=== PATIENT | female | born 2005 | race Caucasian/White ===

== ENCOUNTER 2023-09-07 03:54 | Inpatient (IN) | payer MEDICAID, SELFPAY ==
[2023-09-07] VITALS (55 sets, daily range): BP systolic 99–154; BP diastolic 52–80; PULSE 79–133; RESP 16; TEMP 36.4–37.3; O2SAT 94–100; BMI 24.6
--- OUTSIDE RECORDS SUMMARY | 2023-09-07 03:14 | XMS RPT_ITS | CCD ---
Author Name Unknown Address [address] [place] [address] Organization [facility] Care Team Providers Care Printing Plate Clerk Name Role Phone LUCRECIA ROWAN Unavailable Unavailable REFERRED, SELF Unavailable Unavailable NO PRIMARY CARE, Unavailable Unavailable Unavailable Primary Care Provider Unavailabl e [facility] Primary Care Provider Unav ailable MILLIE RHOADES Attending Unavailable [facility] Unavailable [facility] Unavailable DUNCAN YOO Attending Unavailable MARIZOL AZEVEDO Referring Unavailable [facility] Unavailable MILLIE RHOADES Attending Unavailable [facility] Primary [facility] Unavailable MILLIE RHOADES Referring Unavailable [facility] Primary [facility] Unavailable GARCIALATONIA Ochoa Attending Unavailable [facility] Primary [facility] Unavailable GARCIA, LATOINA Referring Unavailable MARIZOL AZEVEDO Attending Unavailable [facility] Primary Care Unavailable MARIZOL AZEVEDO Attending Unavailable [facility] Primary [facility] Unavailable MARIZOL AZEVEDO Attending Unavailable [facility] Primary [facility] Unavailable MARIZOL AZEVEDO Attending Unavailable [facility] Primary Care Unavailable Unavailable Primary Care Provider UnavailKVNG Acevedo Attending Unavailable CHRISTI MALAGON Attending Unavail able ERICH PAYNE Attending Unavailable ERICH PAYNE Attending Unavailable RUDDY WHITEHEAD Attending Unavailable Medications Current Medications Medication Drug Class(es) Dates Sig (Normalized) Sig (Original) albuterol 0.83 mg/ml inhalant solution (3 sources) beta2-Adrenergic Agonist Start: 04-05-2019 albuterol (PROVENTIL) nebulizer solution 2.5 mg Completed/Discontinued Medications Medication Drug Class(es) Dates Sig (Normalized) Sig (Original) 10 ml lidocaine hydrochloride 10 mg/ml injection (1 source) Antiarrhythmic, Amide Local Anesthetic Start: 03-03-2019 End: 03-03-2019 lidocaine PF 1 % injection 5 mL PNV no.95/ferrous fum/folic ac ( ORAL) (7 sources) PNV no.95/ferrou s fum/folic ac ( ORAL) Take by mouth once daily. 0 Active Problems Active Problems Problem Classification Problem Date Documented Date Episodic/Chronic Chronic obstructive pulmonary disease and bronchiectasis (1 source) Bronchitis; Translations: [Bronchitis] Episodic Menstrual disorders (3 sources) Amenorrhea; Translations: [Amenorrhea, unspecified] Onset: 02-04-2023 02-04-2023 Chronic Nonmalignant breast conditions (1 source) Abscess of breast; Translations: [Abscess of breast] Episodic Other complications of (2 sources) Other specified related conditions, unspecified trimester; Translations: [Other specified related conditions, unspecified trimester] Onset: 06-11-2023 Episodic Other lower respiratory disease (1 source) Cough; Translations: [Cough] Episodic Other and delivery including normal (20 sources) Patient encounter status; Translations: [Encounter for supervision of normal , unspecified, unspecified trimester] Onset: 02-28-2023 02-04-2023 Episodic Other screening for suspected conditions (not mental disorders or infectious disease) (6 sources) Encounter for screening for malformations; Translations: [Encounter for nonprocreative screening for genetic disease carrier status] Onset: 02-28-2023 Episodic Residual codes; unclassified (1 source) Gestation period, 12 weeks; Translations: [12 weeks gestation of ] 02-28-2023 Episodic Residual codes; unclassified (2 sources) Gestation period, 16 weeks; Translations: [16 weeks gestation of ] Onset: 03-28-2023 03-28-2023 Episodic Residual codes; unclassified (2 sources) Unspecified blood type, Rh negative; Translations: [Unspecified blood type, rh negative] Onset: 06-11-2023 Episodic Residual codes; unclassified (1 source) 16 weeks gestation of ; Translations: [16 weeks gestation of ] Onset: 03-28-2023 Episodic Residual codes; unclassified (1 source) Gestation period, 35 weeks; Translations: [35 weeks gestation of ] 08-08-2023 Episodic Residual codes; unclassified (1 source) Gestation period, 37 weeks; Translations: [37 weeks gestation of ] 08-16-2023 Episodic Residual codes; unclassified (1 source) Gestation period, 38 weeks; Translations: [38 weeks gestation of ] 08-23-2023 Episodic Residual codes; unclassified (1 source) Gestation period, 39 weeks; Translations: [39 weeks gestation of ] 08-30-2023 Episodic Residual codes; unclassified (1 source) Gestation period, 40 weeks; Translations: [40 weeks gestation of ] 09-06-2023 Episodic Unclassified (2 sources) Routine Visit; Translations: [Routine Visit] Onset: 04-26-2023 Past or Other Problems Problem Classification Problem Date Documented Da te Episodic/Chronic Other complications of (18 sources) RhD negative; Translations: [Other specified related conditions, unspecified trimester] Onset: 02-07-2023 02-07-2023 Episodic Results Test Name Value Interpretation Reference Range Facil ity in contact with raw meat, poultry, seafood, eggs or unwashed fresh produce. Clean up spills in your refrigerator right away. Look at expiration dates on containers. Once a week throw away food that should no longer be eaten. Keep things Keep raw meat, poultry and seafood separate from other items in your grocery cart and refrigerator. Put uncooked meat, poultry and fish in sealed containers or plastic bags when storing them in the refrigerator. Use one cutting board for raw meats and a different one for fruits and vegetables. Place cooked meat, poultry and seafood on a clean plate. Do not reuse a plate that held the raw food. Keep things chilled Keep your refrigerator at 40 F or below and your freezer at zero F or below. Refrigerate food quickly. Cold temperatures keep most harmful bacteria from multiplying. Refrigerate perishable foods within two hours of purchase. (Refrigerate within one hour if the temperature is more than 90 F.) Refrigerate or freeze prepared foods and leftovers within two hours (within one hour if the temperature is more than 90 F). Use shallow containers for quicker cooling. Don't overpack the refrigerator; leave room for the cold air to circulate. Never thaw foods on the counter. Thaw foods in the refrigerator, in cold water, or in a microwave. Cook things well Use a clean, quick-read food thermometer to determine the temperature of foods. Cook foods until they have reached the proper temperature: roast beef, steaks, pork chops or roast to at least 145 F ground beef to at least 160 F ground turkey, chicken breasts or whole poultry to at least 165 F fish until it's opaque and flakes easily with a fork (145 F) eggs until the yolks and whites are firm egg dishes to 160 F Reheat leftovers to 165 F. Other tips to prevent food-related illness Listeria is a kind of bacteria that can contaminate foods and cause an infection called listeriosis. This is a serious illness that can cause premature labor or to a developing or baby. To reduce your risk of listeriosis: Make sure all milk and milk products are pasteurized. Do not eat unpasteurized soft cheeses such as feta, Brie, Camembert, blue-veined cheeses and Bermudian-style cheeses. Limit deli foods like prepared salads or cheeses. Reheat hot dogs, lunch meats and deli meats until they are steaming hot. Do not eat refrigerated p t or meat spreads. (Canned or shelf-stable spreads are fine.) Only eat refrigerated smoked seafood as an ingredient in a cooked dish, such as a casserole. Reheat pre-cooked, take-home meals to 165 F. Choosing fish wisely Fish is a good source of protein, contains fatty acids, and is low in saturated fat. However, any fish (store-bought or fresh-caught) could contain contaminants such as mercury or PCBs that can harm a developing baby. It's best to vary the kind of fish you eat and limit the amount of fish you eat to one to two meals a week. The amount of fish in a meal depends on your body weight. If you weigh 150 pounds, you could safely eat one-half pound (8 ounces) of fish (precooked weight). To adjust the amount of fish, subtract or add one ounce of fish for every 20 pounds of body weight: If you weigh 130 pounds, eat 7 ounces of fish. If you weigh 150 pounds, eat 8 ounces of fish. If you weigh 170 pounds, eat 9 ounces of fish. Tips to help you choose fish Avoid camilo mackerel, swordfish, tilefish, marlin, orange roughy, and shark. These are large, salt-water fish most likely to have high levels of mercury. Avoid eating these locally caught fish: walleye larger than 20 inches, northern pike larger than 30 inches, and all muskellunge (muskies). Limit eating canned albacore tuna to one 6-ounce meal a month. Light tuna is a smaller fish and less likely to have high levels of mercury. Eat up to two meals a week of farm-raised or wild salmon from the [place] or [place], not from the [place]. Avoid raw fish, sushi and sashimi because it could contain harmful bacteria. Caffeine We don t know a lot about the effects of caffeine during on you and your baby. So it s best to limit the amount you get each day. If you re , limit caffeine to 200 milligrams each day. This is about the amount in 1 8-ounce cups of coffee or one 12-ounce cup of coffee. If you re , limit caffeine to no more than two cups of coffee a day. From September ====== Obstetrical Care Calendar This outline gives a general idea of what to expect at your future OB visits with [facility] 6 -13 Weeks - Dating and Viability Ultrasound/ Initial OB intake and physical with a Certified Nurse Website Developer or Women s Health Nurse Practitioner. Obtain complete medical, genetic and obstetrical history blood work ordered education Discuss testing options: 1st trimester screening (provides a more accurate assessment of a woman s risk for carrying a baby with Down Syndrome, Trisomy 13 and Trisomy 18. Carrier Screening for Cystic Fibrosis, Spinal Muscular Atrophy or Fragile X. AFP for Neural Tube Defect. Other tests if appropriate due to risk factors. Discuss Physician and Nurse Website Developer options Discuss [facility] as site for delivery 10 - 14 Weeks - Visit with OB Provider Review Results of Labs Discuss 1st Trimester Screening results if you choose this testing Discuss indications or need for MFM referral if High Risk At Each visit - Check Blood pressure, Check urine, check weight and heart tones as indicated 12 - 16 weeks - Visit with OB Provider Discuss 2nd trimester screening (QUAD screen or AFP) if desired Check blood pressure, urine, weight and heart tones Review OB provider options Schedule anatomy ultrasound to be done around 18 weeks 18 - 20 weeks - Anatomy US and Visit with Provider Check weight, blood pressure and urine Listen to heart beat and check uterine size Review results of anatomy ultrasound 22 - 24 weeks - Visit with OB Provider Check weight, blood pressure and urine Listen to heart beat and check uterine size Discuss 1 hour glucose test for gestational diabetes Order blood work for anemia and glucose test to be done around 28 weeks Order Antibody screen and rhogam IF Rh negative blood type 26 - 28 weeks - Visit with OB Provider Check weight, blood pressure and urine Listen to heart beat and check uterine size Discuss plans, choosing director of resource development, taking childbirth classes Discuss TDaP vaccine to protect the baby against whooping cough, given at 27-36 weeks of 30 - 36 weeks - Visits with OB provider every 2 weeks Review results of glucose test and anemia test Check weight, blood pressure and urine Listen to heart beat and check uterine size High risk testing, if needed, will begin weekly Discuss circumcision, breast feeding, and control for after delivery Discuss plans, consider CNM or physician for delivery 36 - 40 weeks - Visits with Ob provider every week Check weight, blood pressure and urine Listen to heart beat and check uterine size Obtain vaginal/rectal culture for Group B Strep Cervical exam per patient request 41 weeks - Visit with OB provider Discuss option for post term testing with Non-Stress test and KEVIN Discuss and schedule induction of labor prior to 42 weeks How to contact us: Have you signed up for [facility] ? It is the best way to communicate with us for your non-urgent needs. You will need an activation code. If you need a code please ask us or any of our front facer staff or call and we can provide to your email! You can also sign up for [employer] on the [facility] website. Our goal is to answer your messages within 2-3 business days. During office hours please call the office: [phone] After hours answering service phone number: [phone] Please call if you experience any of the following: LABOR: Contractions that you feel 4-6 times per hour. It may feel like lower abdominal cramping, or low back pain that comes and goes with stomach tightening. If you notice this, lie down on your side and drink 2 bottles of water. Rest and fluids is normally enough to calm things down. If after 1-2 hours the contractions don't get better, then call us. BLEEDING: Blood tinged mucous discharge is not uncommon, especially if you have had an exam in the office recently or sexual intercourse. However if you are bleeding like a period, you should call us WATER BREAKS: You may experience in increase in vaginal secretions near the time of labor, but if you think your water broke, please call us. DECREASED MOVEMENT: Baby movements change in the last trimester. They tend to be not as vigorous, and change to nudges and rolls. But, if you feel like these movement are not normal, please call our office during office hours or the answering service after hours. documented in this encounter [facility] 02-04-2023 History of Presen t illness Narrative Alexandria Chan 02/04/2023 17 y.o. 02/04/2023 This patient is new to me and to the practice This is a new problem. HPI - She is being seen today regarding no period and positive urine test at home. This was not a planned She was not using control at the time of conception Patient's last menstrual period was 11/30/2022 (exact date). Average Cycle length: 28-29 days Menses are regular. EDC based on LMP: 09/06/2023 Estimated weeks gestation: 9w 3d Vaginalbleeding: no Pelvic pain: no Currently taking a vitamin: yes Has nausea and/or vomiting: yes, not vomitting Fatigue: yes Breast tenderness: yes Smoking: no Review of Systems Constitutional: Positive for appetite change and fatigue. Negative for chills and fever. HENT: Negative for congestion. Respiratory: Negative for cough and chest tightness. Cardiovascular: Negative for chest pain, palpitations and leg swelling. Gastrointestinal: Positive for nausea. Negative for abdominal distention, abdominal pain, constipation, diarrhea and vomiting. Genitourinary: Negative for dysuria, frequency and vaginal discharge. Musculoskeletal: Negative for back pain. Skin: Negative for pallor and rash. Allergic/Immunologic: Negative for environmental allergies and food allergies. Neurological: Negative for seizures and headaches. Psychiatric/Behavioral: Negative for confusion. The patient is not nervous/anxious. OB History No obstetric history on file. History reviewed. No pertinent past medical history. History reviewed. No pertinent surgical history. No family history on file. Social History Socioeconomic History Marital status: Single Spouse name: Not on file Number of children: Not on file Years of education: Not on file Highest education level: Not on file Occupational History Not on file Tobacco Use Smoking status: Never Smokeless tobacco: Never Substance and Sexual Activity Alcohol use: Not Currently Drug use: Never Sexual activity: Yes Partners: Male Other Topics Concern Not on file Social History Narrative Merged History Encounter Social Determinants of Health Financial Resource Strain: Not on file Food Insecurity: Not on file Transportation Needs: Not on file Physical Activity: Not on file Stress: Not on file Social Connections: Not on file Intimate Partner Violence: Not on file Housing Stability: Not on file OB History No obstetric history on file. History reviewed. No pertinent surgical history. MEDICATIONS: Current Outpatient Medications Medication Sig Dispense Refill Vit-Fe Fumarate-FA ( VITAMIN PO) Take by mouth. No current facility-administered medications for this visit. ALLERGIES: Allergies as of 02/04/2023 (No Known Allergies) PHYSICAL EXAM height is 5' 7 (1.702 m) and weight is 131 lb (59.4 kg). Her blood pressure is 117/79 and her pulse is 94. Body mass index is 20.52 kg/m . Constitutional: Alert and oriented to person, place, and time. Normal appearance and dress, well developed, well nourished, cooperative, and appears to be in no acute distress HENT: Head: Normocephalic Eyes: PERRLA, normal sclera, vision grossly intact, no eye discharge Nose: No nasal discharge Neck: Supple, normal range of motion Respiratory: Normal respiratory effort, no respiratory distress. Neuro: no gross motor deficits Musculoskeletal: Normal gait, normal muscular development, no edema Extremities: No calf tenderness, DTR 2+, and No edema bilaterally Skin: Skin normal color, warm and dry, normal texture with no lesions or eruptions. Psych: The patient was able to demonstrate good judgement and reason, without hallucinations, abnormal affect or abnormal behaviors during the examination. Patient is not suicidal. Thought content is normal. Assessment: Diagnosis Plan 1. care, antepartum 2. Amenorrhea ABO Group Antibody screen hCG, quantitative Rh Type Alexandria was seen today for amenorrhea. Diagnoses and all orders for this visit: care, antepartum (Primary) - Cancel: Antibody screen - Cancel: ABO Group - Cancel: Rh Type - Cancel: hCG, quantitative Amenorrhea - ABO Group - Antibody screen - hCG, quantitative - Rh Type Follow up in about 3 weeks (around 02/25/2023) for IPV, Dating US. Plan: PNV recommended and prescribed if needed. Advised to take a vitamin with iron, not a gummy vitamin after the first trimester. HCG ordered-Pt aware that she can find the results on MyChart and that I will follow up with a [employer] message Dating and viability US ordered NOB process reviewed process reviewed. Obstetrical calendar on AVS NOB education packet given: via AVS and handouts as available. Information regarding aneuploidy and carrier screening given to patient on AVS Body mass index is 20.52 kg/m . patient meets criteria for early glucose ifviable IUP confirmed No Reviewed relief measures for nausea and vomiting including over the counter B6 and doxylamine. ALF [facility] Patient was seen today for evaluation, counseling and education regarding The primary encounter diagnosis was care, antepartum. A diagnosis of Amenorrhea was also pertinent to this visit. and Amenorrhea (LMP 5..23 TANYA 3.1.24 = 9.3wks) . Previous labs and other diagnostics were reviewed if available Previous office notes were also reviewed if available. documented in this encounter [facility] 02-04-2023 Instructions Latonia Garcia CNM - 02/04/2023 1:30 PM EDT Obstetrical Calendar Weeks Gestation: Discussion and Testing 4-8 weeks - Visit with provider to establish hcg blood levels and order ultrasound. 6-13 Weeks - Dating and Viability Ultrasound and Visit with provider to discuss US results. 10-13 weeks - Initial OB intake and physical with a Website Developer or Nurse Practitioner. Obtain complete medical, genetic and obstetrical history blood work ordered education Discuss testing options: 1st trimester screening (provides a more accurate assessment of a woman s risk for carrying a baby with Down Syndrome, Trisomy 13 and Trisomy 18. Carrier Screening for Cystic Fibrosis, Spinal Muscular Atrophy or Fragile x. AFP for Neural Tube Defect. Other tests if appropriate due to risk factors. Discuss Physician and Nurse Website Developer options Discuss hospital for delivery 10-14 Weeks - Visit with OB Provider Review Results of Labs Discuss 1st Trimester Screening or Free Cell DNA if you wish to pursue Discuss indications or need for MFM referral if High Risk, or if need for Amniocentesis or [facility] (Chorionic villus sampling) test to diagnose chromosomal abnormalities At Each visit - Check Blood pressure, Check urine, check weight and heart tones as indicated 12-16 weeks - Visit with OB Provider Discuss 2nd trimester screening if desired Check blood pressure, urine, weight and heart tones Review OB provider options Schedule anatomy US for 18-20 weeks 18-20 weeks - Anatomy US and Visit with Provider Check weight, blood pressure and urine Listen to heart beat and check uterine size Review results of anatomy US 22-24 weeks - Visit with OB Provider Check weight, blood pressure and urine Listen to heart beat and check uterine size Discuss 1 hour glucose test for gestational diabetes Order blood work for anemia and glucose test to be done around 26-28 weeks Order Antibody screen and rhogam IF Rh negative blood type 26-28 weeks - Visit with OB Provider Check weight, blood pressure and urine Listen to heart beat and check uterine size Review results of glucose test and anemia test if done Discuss plans, preregistration, choosing director of resource development, taking childbirth classes 30 - 36 weeks - Visits with OB provider every 2 weeks Check weight, blood pressure and urine Listen to heart beat and check uterine size High risk testing, if needed, will begin weekly - Please schedule all of theses ahead of time. Discuss circumcision, breast feeding, preregistration. Discuss plans, consider CNM or physician for delivery. 36-40 weeks - Visits with Ob provider every week Check weight, blood pressure and urine Listen to heart beat and check uterine size Obtain vaginal/rectal culture for Group B Strep Cervical exam 41 weeks - Visit with OB provider Discuss option for post term testing with Non-Stress test and KEVIN Discuss and schedule induction of labor prior to 42 weeks Genetic Screening Tests What is genetic testing? genetic testing gives [id number] information about whether their fetus has certain genetic disorders. What are genetic disorders? Genetic disorders are caused by changes in a person s genes or chromosomes. Aneuploidy is a condition in which there are missing or extra chromosomes. In a trisomy, there is an extra chromosome. In a monosomy, a chromosome is missing. Inherited disorders are caused by changes in genes called mutations. Inherited disorders include sickle cell disease, cystic fibrosis, Elia-Sachs disease, and many others. In most cases, both parents must carry the same gene to have an affected child. What are genetic screening tests? These tests can tell you the chances that your fetus has an aneuploidy and a few additional disorders. This FAQ focuses on these tests. What are the different types of genetic screening tests? Screening tests can tell you your risk of having a baby with certain disorders. They include carrier screening and genetic screening tests: Carrier screening is done on parents (or those just thinking about becoming parents) using a blood sample or tissue sample swabbed from inside the cheek. These tests are used to find out whether a person carries a gene for certain inherited disorders. Carrier screening can be done before or during . genetic screening tests of the woman s blood and findings from ultrasound exams can screen the fetus for aneuploidy; defects of the brain and spine called neural tube defects; and some defects of the abdomen, heart, and facial features. This focuses on these tests. They include first-trimester screening and second-trimester screening What is first-trimester screening? Aneupoidy screening or NIPT (non-invasive testing) is done with maternal blood taken sometime after 12weeks 4 days. This test helps determine the risk for trisomy 21, trisomy 13 and trisomy 18. It also detects abnormalities of the sex chromosomes such as monosomy X and Turners syndrome. What is second-trimester screening? Second-trimester screening includes the following tests: The quad or quadruple blood test measures the levels of four different substances in your blood. The quad test screens for Down syndrome, trisomy 18, and neural tube defects. It is done between 15 weeks and 22 weeks of . There is an option to only measure the alpha fetoprotein (AFP) level with blood work which could screen for only neural tube defects. An ultrasound exam done between 18 weeks and 20 weeks of checks for major physical defects in the brain and spine, facial features, abdomen, heart, and limbs. What do the different results of screening tests mean? Results of blood screening tests for aneuploidy are reported as the level of risk that the disorder might be present: A positive screening test result for aneuploidy means that your fetus is at higher risk of having the disorder compared with the general population. It does not mean that your fetus definitely has the disorder. A negative result means that your fetus is at lower risk of having the disorder compared with the general population. It does not rule out the possibility that your fetus has the disorder. What should I consider when deciding whether to have genetic testing? It is your choice whether to have testing. Your personal beliefs and values are important factors in the decision about testing. It can be helpful to think about how you would use the results of screening tests in your care. Remember that a positive screening test tells you only that you are at higher risk of having a baby with Down syndrome or another aneuploidy. A diagnostic test should be done if you want to know a more certain result. Some parents want to know beforehand that their baby will be born with a genetic disorder. This knowledge gives parents time to learn about the disorder and plan for the medical care that the child may need. Some parents may decide to end the in certain situations. Other parents do not want to know this information before the child is born. In this case, you may decide not to have follow-up diagnostic testing if a screening test result is positive. Or you may decide not to have any testing at all. There is no right or wrong answer. Glossary Amniocentesis: A procedure in which a needle is used to withdraw and test a small amount of amniotic fluid and cells from the sac surrounding the fetus. Aneuploidy: Having an abnormal number of chromosomes. Carrier Screening: A test done on a person without signs or symptoms to find out whether he or she carries a gene for a genetic disorder. Chorionic Villus Sampling (CVS): A procedure in which a small sample of cells is taken from the placenta and tested. Cystic Fibrosis: An inherited disorder that causes problems in digestion and breathing. Down Syndrome: A genetic disorder that causes abnormal features of the face and body, medical problems such as heart defects, and intellectual disability. Most cases of Down syndrome are caused by an extra chromosome 21 (trisomy 21). Many children with Down syndrome live to adulthood. Monosomy: A condition in which there is a missing chromosome. Neural Tube Defects: defects that result from incomplete development of the brain, spinal cord, or their coverings. Nuchal Translucency Screening: A test in which the size of a collection of fluid at the back of the neck is measured by ultrasound to screen for certain defects, such as Down syndrome, trisomy 18, or heart defects. Screening Tests: Tests that look for possible signs of disease in people who do not have symptoms. Sickle Cell Disease: An inherited disorder in which red blood cells have a crescent shape, causing chronic anemia and episodes of pain. It occurs most often in Americans. Elia-Sachs Disease: An inherited defect that causes intellectual disability, blindness, seizures, and , usually by age 5 years. It most commonly affects people of [place] and [place], [place], and [place] descent, but it can occur in anyone. Trisomy 13 (Patau Syndrome): A chromosomal disorder that causes serious problems with the brain and heart as well as extra fingers and toes, cleft palate and lip, and other defects. Most infants with trisomy 13 within the first year of life. Trisomy 18 (Bond Syndrome): A chromosomal disorder that causes severe intellectual disability and serious physical problems such as a small head, heart defects, and deafness. Most of those affected with trisomy 18 before or within the first month of life. Copyright January 2017 by the [employer] ========= Panorama NIPT Screen Information As an expectant parent, you may want to learn everything you can about the health of your baby. The Panorama Screen checks for the most common chromosomal disorders, such as Down syndrome, Trisomy 18 and Trisomy 13 that could affect your baby s health. This noninvasive test requires only a blood draw, so it s safe for both mom and baby. This test looks at DNA from the that crosses into the mother s blood to screen for chromosomal disorders that can cause serious defects, intellectual disability, or other health problems. Any baby can be born with a chromosome disorder, which is usually caused by a random error of cell division very early in . As women get older, the chance of having a baby with a chromosome disorder goes up. However, young women can have babies with these conditions. How does noninvasive testing work? DNA is the blueprint of life. It carries all of the genetic information needed for our bodies to function. A section of DNA with a specific job is called a gene. DNA is packaged into bundles called chromosomes. Healthy humans have 23 pairs of chromosomes. Any more or less can lead to problems. DNA from the placenta naturally crosses into the mother s bloodstream as a progresses. For the test, a small sample of your blood is drawn and the DNA is analyzed to check for certain chromosomal disorders, which can cause serious defects, intellectual disability, or other health problems in the baby. What conditions can this test detect? Down syndrome (trisomy 21) is caused by an extra copy of chromosome 21. It affects about 1 in 700 newborns,and is the most common genetic cause of mild to moderate intellectual disability. Children with trisomy 21 commonly have typical facial features, and a higher risk for certain health problems, including heart defects, other defects, and hearing and vision problems. Bond syndrome (trisomy 18) is caused by an extra copy of chromosome 18. It affects about 1 in 5,000 newborns. Children with trisomy 18 may have severe intellectual disability along with serious defects of the heart, brain, and other organs and usually survive less than one year. It is common for pregnancies with trisomy 18 to end in miscarriage or stillbirth. Patau syndrome (trisomy 13) is caused by an extra copy of chromosome 13. It affects about 1 in 16,000 newborns. Children with trisomy 13 may have severe intellectual disability and many serious defects (heart defects, extra fingers, cleft lip and palate, brain and abdominal wall defects) and usually survive less than one year. It is common for pregnancies with trisomy 13 to end in miscarriage or stillbirth. Phelps syndrome (monosomy X)* is caused by a missing X chromosome in females. It affects about 1 in 2,000 female newborns. Girls with monosomy X commonly have heart defects, growth delays, infertility and may have minor learning difficulties. It is common for pregnancies with monosomy X to end in miscarriage or stillbirth. Klinefelter syndrome (XXY)* is caused by an extra X chromosome in males. It affects between 1 in 500 and 1 in 1,000 males. Children with Klinefelter syndrome commonly have delayed or absent puberty, learning difficulties, and tall stature. Most males with Klinefelter syndrome are infertile. XYY syndrome or XXX syndrome* are caused by an extra Y chromosome in males (XYY) or an extra X chromosome in females (XXX). It affects about 1 in 1,000 newborns. Children with XYY syndrome can have tall stature and an increased risk for learning difficulties or delayed motor skills. Fertility is not usually affected and some individuals have no symptoms at all. DiGeorge syndrome (22q11.2 deletion) is caused by a small missing piece of chromosome 22. It affects from 1 in 2,000 to 1 in 4,000 newborns, and is often not diagnosed for years. It results in poor development in several body systems, and can include growth delays, feeding problems, congenital heart disease, gastrointestinal difficulties, breathing concerns, immune deficiencies, and many other issues. Early diagnosis is the graham to properly addressing the issues. * May be included in the test. Cannot be evaluated in twin pregnancies. screening helps you prepare for life While most babies are born healthy, some will be born with a chromosomal disorder. Knowing about the health of the baby during allows you to make the most informed choices for your family. This information can help guide the management of the , and could also give you critical time to prepare--physically, financially, and emotionally--for the of a child with extra needs. Carrier Screening What is carrier screening? Carrier screening is a type of genetic test that can tell you whether you carry a gene for certain genetic disorders. When it is done before or during , it allows you to find out the chances of having a child with a genetic disorder. What is a carrier? For some genetic disorders, it takes two genes for a person to have the disorder. A carrier is a person who has only one gene for a disorder. Carriers usually do not have symptoms or have only mild symptoms. Because they often do not know that they have a gene for a disorder, they can pass the gene on to their children. What are the chances of having a child with a genetic disorder? If both parents are carriers of a recessive gene for a disorder, there is a 25% (1-in-4) chance that their children will get the gene from each parent and will have the disorder. There is a 50% (1-in-2) chance that the children will be carriers of the disorder--just like the carrier parents. If only one parent is a carrier, there is a 50% (1-in-2) chance that the child will be a carrier of the disorder. How is carrier screening done? Carrier screening involves testing a sample of blood, saliva, or tissue from the inside of the cheek. Test results can be negative (you do not have the gene) or positive (you do have the gene). Typically, the partner who is most likely to be a carrier is tested first. If test results show that the first partner is not a carrier, then no additional testing is needed. If test results show that the first partner is a carrier, the other partner is tested. Once you have had a carrier screening test for a specific disorder, you do not need to be tested again for that disorder. When pan devulcanizer screening be done? Some people decide to have carrier screening before having children. Carrier screening also can be done during . Getting tested before gives you a greater range of options and more time to make decisions. Do I have to have carrier screening? Carrier screening is a voluntary decision. You can choose to have carrier screening, or you can choose not to. There is no right or wrong choice. What carrier screening tests are available? We offer a carrier screening panel for 14 diseases. This test is called Horizon If you re an expectant parent, or thinking about starting a family, you probably want to do everything you can to prepare. This test provides a closer look at your genes, to see if you are at risk of passing a hereditary genetic disorder to your child. The Panel checks for carrier status of three of the most common genetic disorders that can cause serious health problems, intellectual disability, or a shorter life. How accurate is carrier screening? No test is perfect. In a small number of cases, test results can be wrong. A negative test result when you have a gene for the disorder tested is called a false-negative result. A positive test result when you do not have a gene for a disorder is called a false-positive result. Also, because carrier screening looks for only a limited number of genes, it is possible that you are a carrier of a genetic disorder even if your test results are negative.. Copyright October 2016 by the [employer] ======== Low Risk Medications This is a listing of low risk, over the counter medication that you may take during your for the following symptoms: Cough, Cold, Congestion Benadryl Sudafed: brand name or generic (pseudoephedrine), buy the one you have to get behind the pharmacy counter and show your p d driver's license to purchase WARNING! Do NOT take Sudafed if you have high blood pressure Robitussin Mucinex Any throat or cough drops, or sprays Chlor-Trimeton Vicks Nasal Sprays [place] Nasal [place] (saline nose spray) Allergy Medication Zyrtec, Claritin Pain Reliever and Fever Rehab Office Coordinator Tylenol, Extra Strength Tylenol, Acetaminophen, Panadol, Tempra, Anacin Aspirin Free Antacids Maalox, Maalox Plus, Mylanta, Mylanta II, Riopan, Riopan Plus, Tums, Rolaids, Gaviscon, Pepcid, Zantac Stool Softeners Colace, Surfak, Metamucil, Citrucel, Fibercon Constipation Mineral Oil, Milk of Magnesia, Miralax Increase fluid and fiber! Nausea Unisom sleep tabs 25 mg (Doxylamine) take one each evening and Vitamin B-6 (25 mg) take 3 times per day Mariam capsules, Mariam tea, Natural gingerale Diarrhea Imodium A/D, Pedialyte, Rehydrate, Gatorade, BRAT diet -bananas, rice, applesauce and toast NOTE: If diarrhea persists more than two days, or if bloody, call the office! Gas Beano, Gas-X (simethicone) Sleep Aid Tylenol PM, Benadryl, Sleepy Time Tea ====== Nausea and Vomiting in How common is nausea and vomiting of ? Nausea and vomiting of is a very common condition. Although nausea and vomiting of often is called morning sickness, it can occur at any time of the day. Nausea and vomiting of usually is not harmful to the developing baby, but it can have a serious effect on your life, including your ability to work or do your normal daily activities. When does nausea and vomiting of start? Nausea and vomiting of usually starts before 9 weeks of . For most women, it goes away by the second trimester (14 weeks of ). For some women, it lasts for several weeks or months. For a few women, it lasts throughout the entire . What is the difference between mild and severe nausea and vomiting of ? Some women feel nauseated for a short time each day and may vomit once or twice. This usually is defined as mild nausea and vomiting of . In more severe cases, nausea lasts several hours each day and vomiting occurs more frequently. Deciding to seek treatment depends on how much nausea and vomiting of affects your life and causes you concern, not whether your condition is mild or severe. What is hyperemesis gravidarum? Hyperemesis gravidarum is the most severe form of nausea and vomiting of . It occurs in up to 3% of pregnancies. This condition may be diagnosed when a woman has lost 5% of her prepregnancy weight and has other problems related to dehydration (loss of body fluids). Women with hyperemesis gravidarum need treatment to stop their vomiting and restore body fluids. Sometimes treatment in a hospital is needed. Am I at risk of severe nausea and vomiting of ? If you have any of the following factors, your risk of severe nausea and vomiting of may be increased: Being with more than one baby (multiple ) Past with nausea and vomiting (either mild or severe) Your mother or sister had severe nausea and vomiting of History of motion sickness or migraines Being with a female fetus Could nausea and vomiting during be caused by another medical condition? Some medical conditions can cause nausea and vomiting during . These include an ulcer, food-related illness, thyroid disease, or gallbladder disease. Your reheater may suspect that you have one of these conditions if you have signs or symptoms that do not usually occur with nausea and vomiting of : Nausea and vomiting that occurs for the first time after 9 weeks of Abdominal pain or tenderness Fever Headache Enlarged thyroid gland (swelling in the front of the neck) Can nausea and vomiting of affect my baby? Having nausea and vomiting of usually does not harm your health or your baby s health. It does not mean your baby is sick. It can become more of a problem if you cannot keep down any food or fluids and begin to lose weight. When this happens, it sometimes can affect the baby s weight at . You also can develop problems with your thyroid, liver, and fluid balance. When is the best time to treat nausea and vomiting of ? Because severe nausea and vomiting of is hard to treat and can cause health problems, many experts recommend early treatment so that it does not become severe. What can I do to feel better if I have nausea and vomiting of ? Diet and lifestyle changes may help you feel better. You may need to try more than one of these suggestions: Take a multivitamin. Try eating dry toast or crackers in the morning before you get out of bed to avoid moving around on an empty stomach. Drink fluids often. Avoid smells that bother you. Eat small, frequent meals instead of three large meals. Try bland foods. For example, the MARIO diet (bananas, rice, applesauce, toast, and tea) is low in fat and easy to digest. Try mariam gabriel made with real mariam, mariam tea made from fresh grated mariam, mariam capsules, and mariam candies. If you do vomit a lot, it can cause some of your tooth enamel to wear away. This happens because your stomach contains a lot of acid. Rinsing your mouth with a teaspoon of baking soda dissolved in a cup of water may help neutralize the acid and protect your teeth. Is there medical treatment for nausea and vomiting of ? If diet and lifestyle changes do not help your symptoms, or if you have severe nausea and vomiting of , medical treatment may be needed. If other medical conditions are ruled out, certain medications can be given to treat nausea and vomiting of : Vitamin B6 and doxylamine--Vitamin B6 is a safe, [id number] treatment that may be tried first. Doxylamine, a medication found in [id number] sleep aids, may be added if vitamin B6 alone does not relieve symptoms. A prescription drug that combines vitamin B6 and doxylamine is available. Both drugs--taken alone or together--have been found to be safe to take during and have no harmful effects on the baby. Try Vitamin B6 25 mg, take it 3 times per day. Unisom sleep tablet 25 mg (active ingredient doxylamine), take one per day before bed. These won't help if just taken as needed. They should be taken daily be most effective. Antiemetic drugs--If vitamin B6 and doxylamine do not work, antiemetic drugs may be prescribed. These drugs prevent vomiting. Many antiemetic drugs have been shown to be safe to use during . Others have conflicting or limited safety information. You and your reheater or other members of your health care team can discuss all of these factors to determine the best treatment for your personal situation. What may happen if my nausea and vomiting is severe or I have hyperemesis gravidarum? You may need to stay in the hospital until your symptoms are under control. Lab tests may be done to check how your liver is working. If you are dehydrated from loss of fluids, you may receive fluids and vitamins through an intravenous line. If your vomiting cannot be controlled, you may need additional medication. If you continue to lose weight, sometimes tube feeding is recommended to ensure that you and your baby are getting enough nutrients. If you have further questions, contact your healthcare provider. Copyright June 2015 by the [employer] Information: Do's and Don'ts Even with all the melva and anticipation can bring, it is not uncommon for a [id number] to have some questions and concerns -- not only about changes to expect throughout her , but also concerns regarding the care of her body to ensure the health of her unborn child. Listed below, you will find some additional information that covers how to care for your body while you are . Do: Plan for weight gain Weight gain during varies from woman to woman and depends on body type. Each woman should talk with her care provider about the appropriate amount of weight gain, as well as diet and exercise. During your , normal weight gain of 0-5 pounds in the first 20 weeks is normal. Most women will gain about a pound a week between 20-40 weeks . However, if your BMI is above or below normal, the following recommendation should be followed: Underweight - BMI Less than 18: Total weight gain 28-40 lbs. Normal Weight - BMI 19-25: Total weight gain 25-35 lbs Overweight - BMI 26-30: Total weight gain 15-25 lbs Obese - BMI over 30: Total weight gain 11-20 lbs If you are having trouble trying to figure out a diet that works for you, please let us know and we can schedule a nutrition consultation for you with our road roller operator hot mix. Do: Maintain a balanced diet According to the FDA, about 300 extra calories are needed daily to maintain a healthy . These calories should come from a balanced diet of protein, fruits, vegetables, and whole grains, with sweets and fats kept to a minimum. A healthy, well-balanced diet during can also help to minimize some symptoms such as nausea and constipation. The graham to a healthy is making sure you have a good nutrient dense diet. This means that the foods you eat have a low amount of calories and sugars and a high amount of vitamins, minerals and protein. Common examples of nutrient dense foods are colorful fruits and vegetables especially those with dark, rich colors such as leafy green vegetables, berries and carrots. Whole grains, nuts and seeds are also considered nutrient dense. During your , You and your baby need about 60-100 grams of protein every day. Protein rich foods include meat, fish, eggs, almonds cottage cheese, [place]ian yogurt, low fat cheese and low fat milk. Most women notice that if they eat 60-100 grams of protein every day and eat 7-12 cups of veggies and fruit every day that they don't crave sweet, simple carbohydrates such as bread, bagels, cookies, chips and sugary foods. Simple carbohydrates need to be eaten in moderation throughout as excess carbohydrate intake can cause excess weight gain which can increase your risk for gestational diabetes, gestational hypertension and excessive growth of the baby Fluid intake is also an important part of healthy nutrition. Women can take in enough fluids by drinking 6 to 8 glasses of water each day, in addition to the fluids in juices and soups. An expectant mother should talk with her health care provider or extractor plant operator about restricting her intake of caffeine and artificial sweeteners. All alcohol should be avoided in . Do: Exercise during : Regular exercise during , with the approval of your physician or extractor plant operator, can often help to minimize the daily physical discomforts and help with the recovery after the baby is born. There is evidence that physical activity may be especially beneficial for women with gestational diabetes. Women who exercised and were physically fit before can safely continue exercising throughout the . Women who were inactive before or who have medical or complications should consult with their physician or extractor plant operator before beginning any exercise during . All women should be evaluated by their physician or extractor plant operator before beginning or continuing an exercise program while . Exercise for women may not be safe if they have any of the following conditions: labor in current or past pregnancies Vaginal bleeding Cervical problems Leaking of amniotic fluid Shortness of breath Dizziness and/or fainting Decreased activity or other complications Increased heart rate (tachycardia) Certain health problems, such as high blood pressure or heart disease Types of exercise to avoid during : Horseback riding Water skiing Scuba diving High altitude skiing Contact sports Any exercise that can cause a serious fall Exercising on your back after the first trimester (because of reduced blood flow to the uterus) Vigorous exercise in hot, humid weather, as women are less efficient at exchanging heat Exercise involving the Valsalva maneuver (holding one's breath during exertion), which can increase intra-abdominal pressure on the uterus Don't: Expose yourself to unnecessary risks if you work during Many women work during without any complications. Being able to work safely, in some cases, until the day of delivery depends on the type of work performed and the [id number]'s medical condition. Taking proper precautions to avoid these risks on the job can help keep you and your baby healthy throughout the . The [employer] recommends the following for working women: Take a break every few hours Take a longer meal break every four hours Drink plenty of fluids while on the job Vary work positions continuously, from sitting to standing and walking Minimize heavy lifting and bending Proper lifting techniques during Weight gain during adds strain to the back. Proper lifting can help reduce the strain and prevent injury. When lifting, a woman should keep in mind the following recommendations: Stand with feet shoulder-width apart Tuck in the buttocks Bend at the knees Lift with the arms and legs, not the back Limit the amount and weight of the items lifted Computer use in Today, many occupations involve the use of a computer. Computers have also been associated with many complaints, such as neck, wrist, hand, shoulder, and back pain from prolonged sitting in the same position and eyestrain. To alleviate these symptoms, the following may help: Take frequent work breaks Use detachable keyboards and adjustable chairs and tables Use non-reflective glass on the screen, adjust the screen lighting and contrast, and install indirect lighting Do: Discuss sex during with your health care provider In most cases, sex during is safe. In fact, with your health care provider's approval, sexual relations can continue until delivery. However, fluctuating hormone levels and certain symptoms such as nausea and tiredness can temporarily reduce a woman's libido (sex drive). In addition, visible changes in the woman's body may affect sexual desire. Always consult your healthcare provider concerning any questions you may have about sex during . Sexual intercourse may have to be avoided if the following symptoms occur: Vaginal bleeding Pain Leaking of amniotic fluid (the fluid surrounding your baby in the womb) Contractions Do: Discuss the best sleeping positions with your health care provider As the fetus grows within the uterus, lying on your back is not recommended due to pressure on the inferior vena cava, a major vein that returns blood from the lower body to the heart. In addition, the increased pressure on the back and intestines can cause discomfort. The best sleeping position for a woman is on her side, because it allows for maximum blood flow to the fetus and improves kidney function in the mother. Improved kidney flow helps to reduce any swelling. Placing a pillow between the knees can help a woman sleep more comfortably on her side. How to contact us: During office hours please call the office: [phone] After hours answering service phone number: [phone] Please call if you experience any of the following: LABOR: Contractions that you feel 4-6 times per hour. It may feel like lower abdominal cramping, or low back pain that comes and goes with stomach tightening. If you notice this, lie down on your side and drink 2 bottles of water. Rest and fluids is normally enough to calm things down. If after 1-2 hours the contractions don't get better, then call us. BLEEDING: Blood tinged mucous discharge is not uncommon, especially if you have had an exam in the office recently or sexual intercourse. However if you are bleeding like a period, you should call us WATER BREAKS: You may experience in increase in vaginal secretions near the time of labor, but if you think your water broke, please call us. DECREASED MOVEMENT: Baby movements change in the last trimester. They tend to be not as vigorous, and change to nudges and rolls. But, if you feel like these movement are not normal, please call our office during office hours or the answering service after hours. ========= [facility] Midwifery Service Before you bring your baby into the world, a lot of decisions have to be made. One of those decisions is whether or not to use a Certified Nurse Website Developer (CNM). Certified Nurse Midwives are registered nurses who have received a master s degree and advanced training in women s health and midwifery. They passed a national certification examination and are licensed in the [facility]. Certified Nurse Midwives write prescriptions and provide a variety of services, including: care Labor & delivery care Care after Disease prevention Family planning assistance Gynecological exams Health maintenance counseling Menopausal management Preconception care CNMs work to support and educate women through all phases of and delivery, and support both medicated and non-medicated birthing methods. They are especially skilled at using alternative birthing positions, birthing balls, water therapy, and massage. If you desire an epidural, this is still an option if you have a Certified Nurse Website Developer. You will work with your CNM to determine the best delivery options for you. However, if medical intervention is needed, your extractor plant operator will take the steps necessary to ensure a healthy outcome for you and your baby. Certified Nurse Midwives are always family nurse practitioner with a physician in case intervention is needed, for instance a Section, vacuum or forceps assisted . Our physician would perform those procedures and the CNM remains present with you for support. The laboring woman receives the best possible care with this team based approach. The CNM section rate at [facility] is only 8-9%, which means most mothers have a normal vaginal . [facility] offers the largest midwifery team in the region. This team is available any time, day or night for your delivery. The extractor plant operator that is family nurse practitioner the day you labor will be the one who attends the . Throughout your you have the option to meet the various midwives or simply go to the office that is most convenient for you. Not all midwives see clients in every office. Marizol Azevedo, SAILOR-BIBI Bejarano, SAILOR-CNLan Aggarwal, SAILOR-CNLan Camarillo, SAILOR-CN Radha Bond, SAILOR-CN Kvng العراقي SAILOR-CN Michell Gan, SAILOR-CN Sravanthi Flores, SAILOR-CNM * Zofia Henderson, SAILOR-CNM Sneha Ramirez, SAILOR-CNM Latonia Garcia SAILOR-CNM Vicenta Krishnan, SAILOR-CNM * Wanda Medina, SAILOR-CNM * *Office-based only midwives, do not attend births Currently, 28/01 midwifery coverage while in labor is only available at [facility]. Do you want more information about midwives? Discover more information for you and your family at the [employer] ([employer]) web site at [email or web address]. Check out the video about Midwives and the Care They Provide at http://bit.ly/MidwivesCare-video uest Lab Locations (Previously [facility]): SITE ADDRESS DIRECTIONS TELEPHONE/FAX Hours of Operation [facility] [address] [place] [address] Near [place] Phone Saturday-Saturday 7:00am-5:00pm 8:00am-12:00pm (Noon) [facility] [address] [place], [place] [address] Professional Building next to [facility] Phone Saturday-Saturday Closed for Lunch 7:30am-4:30pm 12:30pm-1:30pm [facility]: [address] [address] former [facility] Phone Saturday-Saturday 7:30am-4:30pm [facility] [address] [place] [address] Phone Saturday-Saturday Closed for Lunch 7:30am-4:00pm 12:30pm-1:00pm [facility]: [facility] [address] [place], [place] [address] Just west of [facility] Phone //Saturday Closed for Lunch 8:00am-5:00pm 12:00pm-1:00pm [place]: [facility] [address] [facility] [address] [place], [place] [address] [address] Just west of [facility] Phone Saturday- Closed for Lunch Saturday 8:00am-4:30pm 12:30pm-1:00pm 8:00am-12:00pm (Noon) [place]: [address] [address] Just off of the [facility] Porf[address] exit Phone Saturday-Saturday Closed for Lunch 8:00am-5:00pm 12:00pm-1:00pm [place]: [facility] [address] [place], [place] [address] [place] Building Phone Saturday-Saturday 7:30am-4:30pm [place] [address] [place] [place] [address] Parking lot is off of [address]. Phone M, T, TH, F Closed for Lunch Saturday 7:30am-4:30pm 12:00pm-1:00pm 7:30am-11:30am [place]- [facility] [address], [address] [place], [place] [address] In [facility] Phone d4 Saturday-Saturday 7:30am-3:00pm [place]- [facility] [address] [place] [address] Phone Saturday-Saturday 7:30am-4:30pm 8:00am-12:00pm (Noon) [place] [address] [place], [place] [address] from [facility] Phone Saturday-Saturday 7:30am-4:30pm 8:00am-12:00pm (Noon) [place] [address] [place], [place] [address] [address] from [place] Phone Saturday-Saturday Closed for Lunch 7:30am-4:30pm 12:00pm-1:00pm [facility] [address] [place] [address] Phone Saturday-Saturday 7:30am-4:30pm 8:00am-12:00pm (Noon) [place] [address] [place], [place] [address] Just north of [facility] Phone Saturday-Saturday Closed for Lunch 7:30am-4:30pm 12:00pm-1:00pm [place] [address] [place] [address] Phone Saturday-Saturday 7:30am-5:00pm [facility] Professional Building [address] [place] [address] [address] Across shared parking lot from [employer] Phone Saturday-Saturday 7:30am-4:30pm 8:00am-12:00pm (Noon) [facility] [address] [place] [address] Across from [employer] Phone Saturday-Saturday 7:30am-5:00pm [place]: [address] [address] Just north of the [place]. Phone Saturday-Saturday 7:30am-5:00pm documented in this encounter [facility] documented in this encounter [facility] note* Diagnosis Amenorrhea- Primary Absence of menstruation documented in this encounter [facility] note* Diagnosis Initial obstetric visit in first trimester- Primary care, antepartum Screening for genetic disease carrier status Genetic screening Other genetic screening 12 weeks gestation of documented in this encounter [facility] note* Diagnosis Rh negative state in antepartum period- Primary screening for malformation using ultrasonics Encounter for routine screening for malformation using ultrasonics 16 weeks gestation of documented in this encounter [facility] note* Diagnosis Encounter for supervision of normal first in second trimester- Primary Rh negative state in antepartum period documented in this encounter [facility] note* Diagnosis Rh negative state in antepartum period- Primary documented in this encounter [facility] note* Diagnosis Rh negative state in antepartum period- Primary documented in this encounter [facility] note* Diagnosis care, antepartum- Primary documented in this encounter [facility] note* Diagnosis Encounter for supervision of normal first , first trimester- Primary documented in this encounter [facility] note* Diagnosis with care elsewhere in third trimester- Primary 35 weeks gestation of state, incidental documented in this encounter [facility] note* Diagnosis 37 weeks gestation of - Primary state, incidental with care elsewhere in third trimester documented in this encounter [facility] note* Diagnosis with care elsewhere in third trimester- Primary 38 weeks gestation of state, incidental documented in this encounter [facility] note* Diagnosis with care elsewhere in third trimester- Primary 39 weeks gestation of state, incidental documented [facility] encounter [facility]* Diagnosis Encounter for supervision of normal first in third trimester- Primary Supervision of normal first 40 weeks gestation of state, incidental documented in this encounter [facility] Summary Purpose Family History No Family History Records FoundNo Family History Records FoundNo Family History Records FoundNo Family History Records Found Advance Directives No Advanced Directives Records FoundNo Advanced Directives Records FoundNo Advanced Directives Records FoundNo Advanced Directives Records Found Discharge Instructions * Attachments The following attachments cannot be sent through Care Everywhere. * Abscess: Skin: Pediatric (Cuban) documented in this encounter* Instructions* Mp Garnett, SAILOR - RUG INSPECTOR HELPER - 04/05/2019 Drink plenty of fluids. Tylenol and motrin as needed for pain. Follow with your physician in the next several days. Return here or [facility] for new or worsening symptoms. * Attachments The following attachments cannot be sent through Care Everywhere. * Bronchitis: Pediatric (Cuban) documented in this encounter* Instructions* Ruddy Holloway, ALESHIA - BUILDING RENTAL MANAGER - 04/30/2019 You can take Mucinex for the cough I prescribed Tessalon perles for the cough as needed and ibuprofen to take for pain Call Family practice for a follow up appointment next week * Attachments The following attachments cannot be sent through Care Everywhere. * Cough: Teen (Cuban) documented in this encounter Assessments Diagnosis Abscess of breast- Primary Inflammatory disease of breast Diagnosis Bronchitis- Primary Bronchitis, not specified as acute or chronic Diagnosis Cough- Primary Additional Source Comments INFORMATION SOURCE (unrecogn ized section and content) DATE CREATED AUTHOR AUTHOR'S ORGANIZ ATION 05/28/2019 [facility] DATE CREATED AUTHOR AUTHOR'S ORGANIZ ATION 06/17/2023 [facility] DATE CREATED AUTHOR AUTHOR'S ORGANIZ ATION 08/25/2023 [facility] Reason for Visit (unrecogniz ed section and content) Reason Comments Chest Congestion Started a week and a half ago with non-productive cough. Pt feels like her chest is tight and fels lightheaded. Pt is concerned she ehas mono Reason Comments Cough Reason Comments Amenorrhea LMP 5.26.23 TANYA 3.1. 24 = 9.3wks Reason Comments Initial Visit Reason Comments Routine Visit Declined pocket grinder operator e Reason Comments Routine Visit Reason Onset Date Comments Care 08/08/2023 Reason Comments Equipment Tech - Other PRAF Reason Onset Date Comments Care 08/16/2023 Reason Onset Date Comments Population Health Navigation Outreach 08/23/2023 Ob/peds Reason Onset Date Comments Care 08/23/2023 Reason Onset Date Comments Care 08/30/2023 Reason Onset Date Comments Care 09/06/2023 Care Teams (unrecognized sec tion and content) Printing Plate Clerk Relationship Specialty Start Date End Date [facility] [address] [place] [address] PCP - General 01/31/23 Printing Plate Clerk Relationship Specialty Start Date End Date [facility] [address] [place] [address] PCP - General 01/31/23 Printing Plate Clerk Relationship Specialty Start Date End Date [facility] [address] [place] [address] PCP - General 01/31/23 Printing Plate Clerk Relationship Specialty Start Date End Date [facility], [facility] [address] [place] [address] PCP - General 01/31/23 Printing Plate Clerk Relationship Specialty Start Date End Date [facility], [facility] [address] [place] [address] PCP - General 01/31/23 Printing Plate Clerk Relationship Specialty Start Date End Date [facility], [facility] [address] [place] [address] PCP - General 01/31/23 Printing Plate Clerk Relationship Specialty Start Date End Date [facility], [facility] [address] [place] [address] PCP - General 01/31/23 Printing Plate Clerk Relationship Specialty Start Date End Date [facility] [address] [place] [address] PCP - General 01/31/23 Source Comments (unrecognize d section and content) In the event this informatio n is protected by the Federal Confidentiality of Alcohol and Drug Abuse Patient Records regulations: The Federal rules restrict any use of the information to criminally investigate or prosecute any alcohol or drug abuse patient.[facility] the event this information is protected by the Federal Confidentiality of Alcohol and Drug Abuse Patient Records regulations: The Federal rules restrict any use of the information to criminally investigate or prosecute any alcohol or drug abuse patient.[facility] HospitalIn the event this information is protected by the Federal Confidentiality of Alcohol and Drug Abuse Patient Records regulations: The Federal rules restrict any use of the information to criminally investigate or prosecute any alcohol or drug abuse patient.[facility] HospitalIn the event this information is protected by the Federal Confidentiality of Alcohol and Drug Abuse Patient Records regulations: The Federal rules restrict any use of the information to criminally investigate or prosecute any alcohol or drug abuse patient.[facility] HospitalIn the event this information is protected by the Federal Confidentiality of Alcohol and Drug Abuse Patient Records regulations: The Federal rules restrict any use of the information to criminally investigate or prosecute any alcohol or drug abuse patient.[facility] HospitalIn the event this information is protected by the Federal Confidentiality of Alcohol and Drug Abuse Patient Records regulations: The Federal rules restrict any use of the information to criminally investigate or prosecute any alcohol or drug abuse patient.[facility] HospitalIn the event this information is protected by the Federal Confidentiality of Alcohol and Drug Abuse Patient Records regulations: The Federal rules restrict any use of the information to criminally investigate or prosecute any alcohol or drug abuse patient.[facility] FOR RECORDS PERTAINING TO PATIENTS WHO ARE OR HAVE BEEN ENROLLED IN A CHEMICAL DEPENDENCY/SUBSTANCEABUSE PROGRAM, SOME INFORMATION MAY BE OMITTED. This clinical summary was aggregated from multiple sources. Caution should be exercised in using it in the provision of clinical care. This summary normalizes information from multiple sources, and as a consequence, information in this document may materially change the coding, format and clinical context of patient data. In addition, data may be omitted in some cases. CLINICAL DECISIONS SHOULD BE BASED ON THE PRIMARY CLINICAL RECORDS. [facility] MDconnectME [facility]. provides no warranty or guarantee of the accuracy or completeness of information in this document.
[2023-09-07 03:48] LABS: ROM Internal Control Test YES-OK TO RESULT pt. (Internal QC)
[2023-09-07 03:49] LABS: ROM Patient Test POSITIVE (Negative)
--- OUTSIDE RECORDS SUMMARY | 2023-09-07 03:57 | XMS RPT_ITS | CCD ---
Author Name Unknown Address [address] [place] [address] Organization [facility] Care Team Providers Care Software Release Engineer Name Role Phone LUCRECIA ROWAN Unavailable Unavailable REFERRED, SELF Unavailable Unavailable NO PRIMARY CARE, Unavailable Unavailable Unavailable Primary Care Provider Unavailabl e Inc[facility] Primary Care Provider Unav ailable MILLIE RHOADES Attending Unavailable [facility] Unavailable [facility] Unavailable SHARI KATE Attending Unavailable MARIZOL AZEVEDO Referring Unavailable [facility] Unavailable MILLIE RHOADES Attending Unavailable [facility] Unavailable MILLIE RHOADES Referring Unavailable [facility] Unavailable GARCIAMACK Ochoa Attending Unavailable [facility] Unavailable GARCIA, MACK Referring Unavailable MARIZOL AZEVEDO Attending Unavailable [facility] Unavailable MARIZOL AZEVEDO Attending Unavailable [facility] Primary [facility] Unavailable MARIZOL AZEVEDO Attending Unavailable [facility] Unavailable MARIZOL AZEVEDO Attending Unavailable [facility] Unavailable Unavailable Primary Care Provider UnavailSOBEIDA Acevedo Attending Unavailable LU STOVER Attending Unavail able ERICH PAYNE Attending Unavailable [...] Name Value Interpretation Reference Range Facil ity Vital Signs Date Time Vital Sign Value Performing Clinician Facility 09-06-2023 10:36-0500 Body weight 71.22 kg Lu Foley MD Work Phone: [facility] 09-06-2023 10:36-0500 Diastolic blood pressure 60 mm[Hg] Lu Foley MD Work Phone: [facility] 09-06-2023 10:36-0500 Systolic blood pressure 102 mm[Hg] Lu Foley MD Work Phone: [facility] 08-30-2023 09:37-0500 Body weight 71.67 kg Vivian Gallegos MANAGER CLIENT SERVICE.CNM Work Phone: [facility] 08-30-2023 09:37-0500 Diastolic blood pressure 66 mm[Hg] Vivian Gallegos MANAGER CLIENT SERVICE.CNM Work Phone: [facility] 08-30-2023 09:37-0500 Systolic blood pressure 92 mm[Hg] Vivian Gallegos MANAGER CLIENT SERVICE.CNM Work Phone: [facility] 08-23-2023 10:51-0500 Body weight 69.94 kg Sobeida Holland MANAGER CLIENT SERVICE.CNM Work Phone: [facility] 08-23-2023 10:51-0500 Diastolic blood pressure 62 mm[Hg] Sobeida Holland APRN.CNM Work Phone: [facility] 08-23-2023 10:51-0500 Systolic blood pressure 108 mm[Hg] Sobeida Holland APRN.CNM Work Phone: [facility] 08-16-2023 10:13-0500 Body weight 69.22 kg Erich Payne MD Work Phone: [facility] 08-16-2023 10:13-0500 Diastolic blood pressure 70 mm[Hg] Erich Payne MD Work Phone: [facility] 08-16-2023 10:13-0500 Systolic blood pressure 110 mm[Hg] Erich Payne MD Work Phone: [facility] 08-08-2023 08:22-0500 Body weight 67.86 kg Erich Payne MD Work Phone: [facility] 08-08-2023 08:22-0500 Diastolic blood pressure 60 mm[Hg] Erich Payne MD Work Phone: [facility] 08-08-2023 08:22-0500 Systolic blood pressure 100 mm[Hg] Erich Payne MD Work Phone: [facility] 06-14-2023 15:29-0500 Body mass index (BMI) [Ratio] 22.24 kg/m2 Shari Smerker DO Work Phone: [facility] 06-14-2023 15:29-0500 Body weight 64.41 kg Shari Smerker DO Work Phone: [facility] 06-14-2023 15:29-0500 Diastolic blood pressure 71 mm[Hg] Shari Smerker DO Work Phone: [facility] 06-14-2023 15:29-0500 Heart rate 101 /min Shari Smerker DO Work Phone: [facility] 06-14-2023 15:29-0500 Systolic blood pressure 108 mm[Hg] Shari Smerker DO Work Phone: [facility] [employer] 05-24-2023 15:24-0500 Body mass index (BMI) [Ratio] 21.14 kg/m2 Millie Rhoades MANAGER CLIENT SERVICE - WAREHOUSE DISTRIBUTION MANAGER Work Phone: [facility] [employer] 05-24-2023 15:24-0500 Body weight 61.24 kg Millie Rhoades MANAGER CLIENT SERVICE - WAREHOUSE DISTRIBUTION MANAGER Work Phone: [facility] [employer] 05-24-2023 15:24-0500 Diastolic blood pressure 70 mm[Hg] Millie Rhoades MANAGER CLIENT SERVICE - WAREHOUSE DISTRIBUTION MANAGER Work Phone: [facility] [employer] 05-24-2023 15:24-0500 Heart rate 101 /min Millie Rhoades MANAGER CLIENT SERVICE - WAREHOUSE DISTRIBUTION MANAGER Work Phone: [facility] [employer] 05-24-2023 15:24-0500 Systolic blood pressure 105 mm[Hg] Millie Rhoades MANAGER CLIENT SERVICE - WAREHOUSE DISTRIBUTION MANAGER Work Phone: [facility] [employer] 03-28-2023 15:21-0400 Body mass index (BMI) [Ratio] 19.42 kg/m2 Marizol Azevedo MANAGER CLIENT SERVICE - CNM Work Phone: [facility] [employer] 03-28-2023 15:21-0400 Body weight 56.25 kg Marizol Azevedo MANAGER CLIENT SERVICE - CNM Work Phone: [facility] [employer] 03-28-2023 15:21-0400 Diastolic blood pressure 65 mm[Hg] Marizol Azevedo MANAGER CLIENT SERVICE - CNM Work Phone: [facility] 03-28-2023 15:21-0400 Heart rate 102 /min Marizol Azevedo MANAGER CLIENT SERVICE - CNM Work Phone: [facility] [employer] 03-28-2023 15:21-0400 Systolic blood pressure 108 mm[Hg] Marizol Azevedo MANAGER CLIENT SERVICE - CNM Work Phone: [facility] [employer] 02-28-2023 11:58-0400 Body mass index (BMI) [Ratio] 19.64 kg/m2 Marizol Azevedo MANAGER CLIENT SERVICE - CNM Work Phone: [facility] [employer] 02-28-2023 11:58-0400 Body weight 56.88 kg Marizol Azevedo MANAGER CLIENT SERVICE - CNM Work Phone: [email or web address] 02-28-2023 11:58-0400 Diastolic blood pressure 73 mm[Hg] Marizol Azevedo MANAGER CLIENT SERVICE - CNM Work Phone: [facility] [employer] 02-28-2023 11:58-0400 Heart rate 105 /min Marizol Azevedo MANAGER CLIENT SERVICE - CNM Work Phone: [facility] 02-28-2023 11:58-0400 Systolic blood pressure 110 mm[Hg] Marizol Azevedo MANAGER CLIENT SERVICE - CNM Work Phone: [facility] [employer] 02-04-2023 13:26-0400 Body height 170.2 cm Mack Garcia CNM Work Phone: [facility] 02-04-2023 13:26-0400 Body mass index (BMI) [Ratio] 20.52 kg/m2 Mack Garcia CNM Work Phone: [facility] [employer] 02-04-2023 13:26-0400 Body weight 59.42 kg Mack Garcia CNM Work Phone: [employer] 02-04-2023 13:26-0400 Diastolic blood pressure 79 mm[Hg] Mack [facility]M [facility] 02-04-2023 13:26-0400 Heart rate 94 /min Mack Garcia CNM Work Phone: [facility] [employer] 02-04-2023 13:26-0400 Systolic blood pressure 117 mm[Hg] Mack Garcia CNM Work Phone: [employer] 04-30-2019 13:26-0400 Body Temperature 99.7 [degF] [employer] [place], [place] 04-30-2019 13:26-0400 Body weight 46.36 kg [employer] [place] 04-30-2019 13:26-0400 BP Diastolic 80 mm[Hg] [employer] [place] 04-30-2019 13:26-0400 BP Systolic 103 mm[Hg] [place] 04-30-2019 13:26-0400 Pulse (Heart Rate) 109 /min [place] 04-30-2019 13:26-0400 Pulse Oximetry 98 % [place] 04-30-2019 13:26-0400 Respiratory Rate 20 /min [place] 04-05-2019 21:29-0400 BP Diastolic 66 mm[Hg] [place] 04-05-2019 21:29-0400 BP Systolic 105 mm[Hg] [place] 04-05-2019 21:29-0400 Pulse (Heart Rate) 113 /min [place] 04-05-2019 21:29-0400 Pulse Oximetry 100 % [place] 04-05-2019 21:29-0400 Respiratory Rate 16 /min [place] 04-05-2019 19:18-0400 Body Temperature 98.71 [degF] [place] 04-05-2019 19:18-0400 Body weight 49.9 kg [place] 03-03-2019 14:46-0400 BMI (Body Mass Index) 17.23 kg/m2 [place] 03-03-2019 14:46-0400 Body Temperature 98.1 [degF] [place] 03-03-2019 14:46-0400 Body weight 49.9 kg [place] 03-03-2019 14:46-0400 BP Diastolic 69 mm[Hg] [place] 03-03-2019 14:46-0400 BP Systolic 106 mm[Hg] [place] 03-03-2019 14:46-0400 Pulse (Heart Rate) 83 /min [place] 03-03-2019 14:46-0400 Pulse Oximetry 100 % [place] 03-03-2019 14:46-0400 Respiratory Rate 16 /min [place] 03-03-2019 14:43-0400 Height 170.2 cm [place] Encounters Encounter Date Encounter Type Care Provider Facility Start: 09-06-2023 End: 09-06-2023 Patient encounter procedure Lu Foley MD Work Phone: OB/Gynecology Procedures Date Procedure Procedure Detail Performing Clinician Start: 09-06-2023 URINE OB DIP B/O Lu Foley MD Work Phone: Start: 08-30-2023 URINE OB DIP B/O Genevavlad eric Gallegos MANAGER CLIENT SERVICE.CNM Work Phone: Start: 08-23-2023 URINE OB DIP B/O Lu Foley MD Work Phone: Start: 08-16-2023 URINE OB DIP B/O Erich Payne MD Work Phone: Start: 08-08-2023 URINE OB DIP B/O Erich Payne MD Work Phone: Start: 06-11-2023 Antibody screen [facility] Plan of Treatment Date Care Activity Detail Author Start: 2063 RSV Immunization age d 60 or older (1 - 1-dose 60+ series) RSV Immunization aged 60 or older (1 - 1-dose 60+ series) [facility] Start: 2063 RSV Vaccine (1 - 1-d ose 60+ series) RSV Vaccine (1 - 1-dose 60+ series) [facility] Start: 11-21-2053 Zoster Vaccines (1 of 2) Zoster Vacc bernardo (1 of 2) [facility] Start: 07-26-2033 Urine microalbumin profile DTaP,Tdap,Td Vaccine (8 - Td or Tdap) [facility] Start: 02-26-2026 DTaP/Tdap/Td Vaccine s (7 - Td or Tdap) DTaP/Tdap/Td Vaccines (7 - Td or Tdap) [facility] Start: 08-08-2024 GC (Gonorrhea) Scree desiree (18-24) GC (Gonorrhea) Screening (18-24) [facility] Start: 08-08-2024 Screening for Chlamy delilah trachomatis Chlamydia Screening (18-) [facility] Start: 07-26-2024 Covid-19 Vaccine (#1) Covid-19 Vacci ne (#1) [facility] Immunizations Immunization Date Immunization Notes Care Provider Fa cility 07-26-2023 tetanus toxoid, redu bigg diphtheria toxoid, and acellular pertussis vaccine, adsorbed Erich Payne MD Work Phone: [facility] 06-11-2023 RHO(D) immune globul in - IM Shari Kate DO Work Phone: [facility] 10-10-2021 Human Papillomavirus 9-valent vaccine Erich Payne MD Work Phone: [facility] 10-10-2021 meningococcal polysaccharide (groups A, C, Y and W-135) diphtheria toxoid conjugate vaccine (MCV4P) Erich Payne MD Work Phone: [facility] 02-27-2016 Human Papillomavirus 9-valent vaccine Erich Payne MD Work Phone: [facility] 02-27-2016 meningococcal polysaccharide (groups A, C, Y and W-135) diphtheria toxoid conjugate vaccine (MCV4P) Erich Payne MD Work Phone: [facility] 02-27-2016 tetanus toxoid, redu bigg diphtheria toxoid, and acellular pertussis vaccine, adsorbed Erich Payne MD Work Phone: [facility] 03-08-2009 diphtheria, tetanus toxoids and acellular pertussis vaccine Erich Payne MD Work Phone: [facility] 03-08-2009 measles, mumps and rubella virus vaccine Erich Payne MD Work Phone: [facility] 03-08-2009 poliovirus vaccine, inactivated Erich Payne MD Work Phone: [facility] 12-21-2004 diphtheria, tetanus toxoids and acellular pertussis vaccine, unspecified formulation Erich Payne MD Work Phone: [facility] 12-21-2004 haemophilus influenz ae type b vaccine, HbOC conjugate Erich Payne MD Work Phone: [facility] 12-21-2004 measles, mumps and rubella virus vaccine Erich Payne MD Work Phone: [facility] 12-21-2004 pneumococcal conjuga te vaccine, 7 valent Erich Payne MD Work Phone: [facility] 12-21-2004 varicella virus vaccine Elian Kate DO Work Phone: [facility] 06-19-2004 diphtheria, tetanus toxoids and acellular pertussis vaccine, unspecified formulation Erich Payne MD Work Phone: [facility] 06-19-2004 haemophilus influenz ae type b vaccine, HbOC conjugate Erich Payne MD Work Phone: [facility] 06-19-2004 hepatitis B vaccine, pediatric or pediatric/adolescent dosage Erich Payne MD Work Phone: [facility] 06-19-2004 pneumococcal conjuga te vaccine, 7 valent Erich Payne MD Work Phone: [facility] 06-19-2004 poliovirus vaccine, inactivated Erich Payne MD Work Phone: [facility] 04-04-2004 pneumococcal conjuga te vaccine, 7 valent Erich Payne MD Work Phone: [facility] 03-23-2004 diphtheria, tetanus toxoids and acellular pertussis vaccine, unspecified formulation Erich Payne MD Work Phone: [facility] 03-23-2004 haemophilus influenz ae type b vaccine, HbOC conjugate Erich Payne MD Work Phone: [facility] 03-23-2004 poliovirus vaccine, inactivated Erich Payne MD Work Phone: [facility] 01-20-2004 DTaP-hepatitis B and poliovirus vaccine Erich Payne MD Work Phone: [facility] 01-20-2004 haemophilus influenz ae type b vaccine, HbOC conjugate Erich Payne MD Work Phone: [facility] 01-20-2004 pneumococcal conjuga te vaccine, 7 valent Erich Payne MD Work Phone: [facility] 2003 hepatitis B vaccine, pediatric or pediatric/adolescent dosage Erich Payne MD Work Phone: [facility] Payers Date Payer Category Payer Medicaid [id number] 2022 Medicaid [id number] Social History Date Type Detail Facility Start: 03-03-2019 End: 07-09-2023 Tobacco smoking status NHIS Never smoker [place] Start: 03-03-2019 End: 08-23-2023 Alcohol intake Never [place] Start: 03-03-2019 History SDOH Alcohol Frequency 1 [place] Start: 2003 Sex Assigned At Not on file M [place], [place] Start: 02-04-2023 End: 02-28-2023 Alcohol intake Ex-drinker (finding) [facility] Start: 06-03-2022 End: 08-23-2023 History of Social function [facility] How often to you hav e a drink containing alcohol? Never [facility] How many standard dr inks containing alcohol do you have on a typical day? Patient does not drink [facility] Start[facility] Start: 03-15-2023 End: 03-25-2023 Exposure to SARS-CoV-2 (event) Not sure [facility] Start: 07-09-2023 Tobacco use and exposure Smoke less tobacco non-user [facility] Clinical Notes 02-04-2023 to 09-06-2023 Quick Notes - Lu Stover MD - 09/06/2023 12:33 PM ESTPatient InstructionsPrenatal Quick Notes - Vivian Gallegos APRN.CN - 08/30/2023 9:48 AM ESTPatient Instructions Note Date & Type Note Facility 09-06-2023 Miscellaneous Notes DM-Pt doing well. Denies vaginal Bleeding, Leaking fluid, or regular Contractions. Pt reports good movement Physical Exam: Gen: female in no apparent distress Abd: soft, Gravid. Non tender to palpation. See flow sheet A/P: @ 40 weeks 1) membranes swept per patient request, IOL scheduled 41 weeks 2) kick counts and labor reviewed Lu Starkey MD documented in this encounter [facility] 09-06-2023 Instructions [place] Hurst Ma - 09/06/2023 10:33 AM EST SEQUENTIAL SCREENINGS The [facility] offers sequential screenings for women who are interested in screenings for chromosomal abnormalities and certain defects during a . The sequential screen combines ultrasound and blood tests to determine the risk of chromosomal abnormalities, including Down's Syndrome (Trisomy 21) and Trisomy 18, as well as open neural tube defects including spina bifida. Ultrasound examination is performed between 11 weeks and 13 weeks gestational age. Blood tests are drawn after the ultrasound and again later in the between 15 and 21 weeks gestational age. Please let your physician know if you are interested in this testing. It will require an appointment with our animal health technician. This is not an ultrasound performed by a physician in our office during a routine visit. SIGNS AND SYMPTOMS OF LABOR 1. Contractions every 10 minutes or more often 2. Clear, pink, or brownish fluid (water) leaking from vagina 3. Feeling that baby is pushing down, pressure 4. Low, dull backache 5. Cramps that feel like a period 6. Cramps with or without diarrhea If you notice any of the above symptoms, contact our office at [phone] and ask to speak with a nurse. After hours, you can call doctors registry at [phone] OR call [facility] at [phone] and ask to have the doctor library sales consultant paged. If you consider this an emergency, dial 91-3 or go to your nearest emergency department. NEED HELP? Are you dealing with a violent or abusive relationship? Are you a victim of rape or sexual assult? Call [facility] ([place]) 24 hour Crisis Hotline: 580.958.8872 or 685-939-0275. MANUAL Your Guide to a Healthy manual is now on-line. Visit [email or web address] [email or web address] to download your free copy documented in this encounter [facility] 08-30-2023 Miscellaneous Notes S: Birgit Chan is a 17 year old female who presents at 39 weeks gestation for a routine visit. Positive movement. Denies any cramps or contractions but unsure what they feel like. Denies headache, visual changes, chest pain, shortness of breath, vaginal bleeding, leakage of fluid, or dysuria. Feeling well, no complaints. Requesting CE today. O: See flow sheet Gen: No apparent distress Abd: Gravid, nontender ASSESSMENT/PLAN: 1. with care elsewhere in third trimester - ICD9: V22.1, ICD10: Z34.93 (primary diagnosis) 2. 39 weeks gestation of - ICD9: V22.2, ICD10: Z3A.39 - URINE OB DIP B/O - GBS negative - Desires physiological onset of labor but would like induction at 41 weeks. Will sign consent and schedule next visit. - Labor precautions reviewed and when to call - RTO 1 week Vivian Gallegos APRN.CNM documented in this encounter [facility] 08-30-2023 Instructions Brodie Bettencourt Cma - 08/30/2023 9:37 AM EST SEQUENTIAL SCREENINGS The [facility] offers sequential screenings for women who are interested in screenings for chromosomal abnormalities and certain defects during a . The sequential screen combines ultrasound and blood tests to determine the risk of chromosomal abnormalities, including Down's Syndrome (Trisomy 21) and Trisomy 18, as well as open neural tube defects including spina bifida. Ultrasound examination is performed between 11 weeks and 13 weeks gestational age. Blood tests are drawn after the ultrasound and again later in the between 15 and 21 weeks gestational age. Please let your physician know if you are interested in this testing. It will require an appointment with our animal health technician. This is not an ultrasound performed by a physician in our office during a routine visit. SIGNS AND SYMPTOMS OF LABOR 1. Contractions every 10 minutes or more often 2. Clear, pink, or brownish fluid (water) leaking from vagina 3. Feeling that baby is pushing down, pressure 4. Low, dull backache 5. Cramps that feel like a period 6. Cramps with or without diarrhea If you notice any of the above symptoms, contact our office at [phone] and ask to speak with a nurse. After hours, you can call doctors registry at [phone] OR call [facility] at [phone] and ask to have the doctor library sales consultant paged. If you consider this an emergency, dial 9-1-1 or go to your nearest emergency department. NEED HELP? Are you dealing with a violent or abusive relationship? Are you a victim of rape or sexual assult? Call [facility] ([place]) 24 hour Crisis Hotline: 802.383.4626 or 470-517-9938. MANUAL Your Guide to a Healthy manual is now on-line. Visit [email or web address] [email or web address] to download your free copy documented in this encounter [facility] 08-23-2023 Note Patient Outreach (NE TNAV) BIRGIT CHAN ([id number]) 1 F Date Time Provider Department 08/23/23 CARIN LINDA During your visit today, we recorded the following information about you: Carin Linda MA 08/23/2023 12:02 PM Signed POPULATION HEALTH NAVIGATION OUTREACH Action/ attempt: Called and left message to call back to discuss adult basic education instructor. message sent. Patient Identified by Name and : NO Outreach Outcome/Action Unable to reach patient: Left message MyChart message sent Did you use a PCP flex slot to schedule this appointment? N/A Reason for Outreach Payer: Payor: [employer] / Plan: [employer] / Product Type: Medicaid / Care Gap Reviewed:: N/A Reminder: Reminder note to check Health Maintenance for items below Health Maintenance items due: Depression Assessment Never done Navigation Signature: Carin Jamison MA August 23, 2023 11:50 AM Allergies As of Date: 08/23/2023 (No Known Allergies) Date Reviewed: 08/23/2023 Reviewed by: Brodie Bettencourt Cma - Fully Assessed Reason for Visit: Population Health Navigation Outreach [3910] Cmt: Ob/peds Prescriptions as of 08/23/2023 - PNV no.95/ferrous fum/folic ac ( ORAL) Take by mouth once daily. Problem List As Of Date 08/23/2023 Noted Resolved Encounter for supervision of normal first pregn*07/09/2023 Rh negative state in antepartum period [O26.899*02/07/2023 Encounter Status:Closed by CARIN LINDA on 08/23/23 [facility] 08-23-2023 Note HNO ID: [id number] Author: CARIN LINDA MA Service: ? Author Type: Still Pump Operator Type: Progress Notes Filed: 08/23/2023 12:02 Note Text: POPULATION HEALTH NAVIGATION OUTREACH Action/ 1st attempt: Called and left message to call back to discuss adult basic education instructor. MC message sent. Patient Identified by Name and : NO Outreach Outcome/Action Unable to reach patient: Left message MyChart message sent Did you use a PCP flex slot to schedule this appointment? N/A Reason for Outreach [place] Payer: [facility] / Plan: [employer] / Product Type: Medicaid / Care Gap Reviewed:: N/A Reminder: Reminder note to check Health Maintenance for items below Health Maintenance items due: Depression Assessment Never done Navigation Signature: Carin Jamison MA August 23, 2023 11:50 AM [facility] 08-23-2023 History of Presen t illness Narrative POPULATION HEALTH NAVIGATION OUTREACH Action/ 1st attempt: Called and left message to call back to discuss adult basic education instructor. MC message sent. Patient Identified by Name and : NO Outreach Outcome/Action Unable to reach patient: Left message MyChart message sent Did you use a PCP flex slot to schedule this appointment? N/A Reason for Outreach [place] P[facility]: [facility] / Plan: [facility] / Product Type: Medicaid / Care Gap Reviewed:: N/A Reminder: Reminder note to check Health Maintenance for items below Health Maintenance items due: Depression Assessment Never done Navigation Signature: Carin Jamison MA August 23, 2023 11:50 AM documented in this encounter [facility] 08-23-2023 Miscellaneous Notes ALEJANDRO-S: Birgit Chan is a 17 year old female who presents at 38w0d with TANYA:09/06/2023, by Last Menstrual Period for a routine visit. Denies headache, visual changes, chest pain, shortness of breath, vaginal bleeding, leakage of fluid, or dysuria. Feeling well, no complaints. O: See flow sheet Gen: No apparent distress Abd: Gravid, nontender ASSESSMENT/PLAN: 1. with care elsewhere in third trimester 2. 38 weeks gestation of P: 1) Labor instructions reviewed and when to call 2) RTO in one week 3) GBS negative Sobeida Holland APRN.CNM documented in this encounter [facility] 08-23-2023 Instructions Brodie Bettencourt Cma - 08/23/2023 10:45 AM EST SEQUENTIAL SCREENINGS The [facility] offers sequential screenings for women who are interested in screenings for chromosomal abnormalities and certain defects during a . The sequential screen combines ultrasound and blood tests to determine the risk of chromosomal abnormalities, including Down's Syndrome (Trisomy 21) and Trisomy 18, as well as open neural tube defects including spina bifida. Ultrasound examination is performed between 11 weeks and 13 weeks gestational age. Blood tests are drawn after the ultrasound and again later in the between 15 and 21 weeks gestational age. Please let your physician know if you are interested in this testing. It will require an appointment with our animal health technician. This is not an ultrasound performed by a physician in our office during a routine visit. SIGNS AND SYMPTOMS OF LABOR 1. Contractions every 10 minutes or more often 2. Clear, pink, or brownish fluid (water) leaking from vagina 3. Feeling that baby is pushing down, pressure 4. Low, dull backache 5. Cramps that feel like a period 6. Cramps with or without diarrhea If you notice any of the above symptoms, contact our office at [phone] and ask to speak with a nurse. After hours, you can call doctors registry at [phone] OR call [facility] at [phone] and ask to have the doctor library sales consultant paged. If you consider this an emergency, dial 9--0 or go to your nearest emergency department. NEED HELP? Are you dealing with a violent or abusive relationship? Are you a victim of rape or sexual assult? Call [facility] ([place]) 24 hour Crisis Hotline: 232.194.9354 or 127-490-2681. MANUAL Your Guide to a Healthy manual is now on-line. Visit [email or web address] to download your free copy documented in this encounter [facility] 08-16-2023 Miscellaneous Notes KJ - VB No. LOF No. CTXS No. Movement: present. Other c/o: No. Medication list reviewed. Physical Exam See Flow Sheet Gen: no accute distress, well appearing Abd: soft, nontender, gravid A/P 37w0d Estimated Date of Delivery: 09/06/23 labor precautions reviewed, Kick counts reviewed. Erich Payne MD documented in this encounter [facility] 08-16-2023 Instructions Carin Bridges MA - 08/16/2023 10:10 AM EST SEQUENTIAL SCREENINGS The [facility] offers sequential screenings for women who are interested in screenings for chromosomal abnormalities and certain defects during a . The sequential screen combines ultrasound and blood tests to determine the risk of chromosomal abnormalities, including Down's Syndrome (Trisomy 21) and Trisomy 18, as well as open neural tube defects including spina bifida. Ultrasound examination is performed between 11 weeks and 13 weeks gestational age. Blood tests are drawn after the ultrasound and again later in the between 15 and 21 weeks gestational age. Please let your physician know if you are interested in this testing. It will require an appointment with our animal health technician. This is not an ultrasound performed by a physician in our office during a routine visit. SIGNS AND SYMPTOMS OF LABOR 1. Contractions every 10 minutes or more often 2. Clear, pink, or brownish fluid (water) leaking from vagina 3. Feeling that baby is pushing down, pressure 4. Low, dull backache 5. Cramps that feel like a period 6. Cramps with or without diarrhea If you notice any of the above symptoms, contact our office at [phone] and ask to speak with a nurse. After hours, you can call doctors registry at [phone] OR call [facility] at [phone] and ask to have the doctor library sales consultant paged. If you consider this an emergency, dial 9-1-3 or go to your nearest emergency department. NEED HELP? Are you dealing with a violent or abusive relationship? Are you a victim of rape or sexual assult? Call [facility] ([place]) 24 hour Crisis Hotline: 743.272.3275 or 015-562-9987. MANUAL Your Guide to a Healthy manual is now on-line. Visit [email or web address] to download your free copy documented in this encounter [facility] 08-14-2023 Miscellaneous Notes 2nd risk assessment form submitted 08/14/2023. Domenica Long, VIOLET documented in this encounter [facility] 08-08-2023 Miscellaneous Notes KJ - VB No. LOF No. CTXS No. Movement: present. Other c/o: No. Medication list reviewed. Physical Exam See Flow Sheet Gen: no accute distress, well appearing Abd: soft, nontender, gravid : external genitalia: normal, vagina: ruggated, cervix: closed TAUS: confirms vtx A/P 35w6d Estimated Date of Delivery: 09/06/23 Labs: GBS & GC/chlam done PTL precautions reviewed, Kick counts reviewed. Erich Payne MD documented in this encounter [facility] 08-08-2023 Instructions Cyrus CarinBERTO - 08/08/2023 8:17 AM EST SEQUENTIAL SCREENINGS The [facility] offers sequential screenings for women who are interested in screenings for chromosomal abnormalities and certain defects during a . The sequential screen combines ultrasound and blood tests to determine the risk of chromosomal abnormalities, including Down's Syndrome (Trisomy 21) and Trisomy 18, as well as open neural tube defects including spina bifida. Ultrasound examination is performed between 11 weeks and 13 weeks gestational age. Blood tests are drawn after the ultrasound and again later in the between 15 and 21 weeks gestational age. Please let your physician know if you are interested in this testing. It will require an appointment with our animal health technician. This is not an ultrasound performed by a physician in our office during a routine visit. SIGNS AND SYMPTOMS OF LABOR 1. Contractions every 10 minutes or more often 2. Clear, pink, or brownish fluid (water) leaking from vagina 3. Feeling that baby is pushing down, pressure 4. Low, dull backache 5. Cramps that feel like a period 6. Cramps with or without diarrhea If you notice any of the above symptoms, contact our office at [phone] and ask to speak with a nurse. After hours, you can call doctors registry at [phone] OR call [facility] at [phone] and ask to have the doctor library sales consultant paged. If you consider this an emergency, dial 9--9 or go to your nearest emergency department. NEED HELP? Are you dealing with a violent or abusive relationship? Are you a victim of rape or sexual assult? Call [facility] ([place]) 24 hour Crisis Hotline: 415.734.3982 or 985-465-1358. MANUAL Your Guide to a Healthy manual is now on-line. Visit [email or web address] to download your free copy documented in this encounter [facility] 07-09-2023 Note HNO ID: [id number] Author: Sobeida Holland APRN.CNM Service: ? Author Type: Coal Trammer Type: Progress Notes Filed: 07/09/2023 12:54 PM Note Text: INITIAL OB ASSESSMENT HPI: Birgit is a 17 year old No obstetric history on file. White here to establish Obstetrical Care. Patient's last menstrual period was 11/30/2022. from OB Dating Form. Do you have regular periods/menstrual cycles? Yes was unplanned but accepted Complaints: No OB History T0 L0 SAB0 IAB0 Ectopic0 Multiple0 Live Births0 How many pregnancies have you had before? 0 Have you had a prior cash between 20w and 36w6d? No Did you present in active spontaneous labor or have ruptured membranes, or advanced cervical dilation (greater than or equal to 4 cm) or effacement? No Did you have a previous baby with a GBS Infection? No Please select all that apply for any prior : N/A Did you have a partner with Herpes? No Prior : never History of 4th degree laceration: No Patient's Risk Screening for delivery: MEDICAL/PSYCHOSOCIAL HISTORY: History of hemorrhage or bleeding concerns: No Thyroid Disease: No History of chronic hypertension: No History of pre-existing diabetes: No BMI 22.37 kg/(m2) History of abnormal pap: No Prior treatment for cervical dysplasia: none. History of STDs: N/A Tobacco use: No E-Cigarette/Vaping Use: No Caffeine use: No Drug use: No Alcohol use: No Multivitamin with Folic acid: Yes Confucianism or heritage: No Would refuse blood transfusion if medically necessary: No No results found for: ABORHD Social Needs: How often does this describe you? I don't have enough money to pay my bills: Sometimes Within the past 12 months, have you worried that your food would run out before you had money to buy more? Sometimes In the past 12 months, has lack of reliable transportation kept you from going to medical appointments or work, or from getting things needed for daily living? Never In the past 12 months, have you had any concerns about having a place to live, or about the condition or quality of your housing? Never Would you like more information on any of the following (please check all that apply)? Loni, Coal Trammer care Social History: Do you have any history of depression, anxiety, PTSD, or other mood problems? No Do you have a history of abuse or trauma that may impact your experience? No Are you currently employed? Yes Depression/Anxiety Screening: denies symptoms of depression. OB Depression and Anxiety Screening- This Encounter (since 07/08/2023) Over the past 2 weeks have you felt down, depressed, or hopeless? Negative Over the past two weeks, have you felt little interest or pleasure in doing things?? Negative Feeling nervous, anxious or on edge 0-Not at all Not being able to stop or control worrying 0-Not al all Anxiety Pre-Screening Total (If >/= 3 additional questions will be reviewed) 0 Marital Status:Co-habitating Partner: Name: Charlie Napier Age: 24 Occupation: [employer] in [place] Gender: Male History of STDs: None History reviewed. No pertinent past medical history. History reviewed. No pertinent surgical history. Current Outpatient Medications Medication Sig Dispense Refill PNV no.95/ferrous fum/folic ac ( ORAL) Take by mouth once daily. No current facility-administered medications for this visit. Allergies As of Date: 07/09/2023 (No Known Allergies) Fully Assessed 07/09/2023 Does patient have penicillin allergy: No REVIEW OF SYSTEMS: GENERAL: Negative for: Fever or Chills HEENT: Negative for: Headache, Impaired Vision, Ringing in Ears, Nosebleeds NECK: Negative for: Swelling, Pain, Stiffness RESPIRATORY: Negative for: Cough, Shortness of breath, Wheezing GASTROINTESTINAL: Negative for: Heartburn, Constipation, Diarrhea, Blood in stool, Vomiting MUSCULOSKELETAL: Negative for: Muscle or joint pain, stiffness, Joint swelling NEUROLOGIC/PSYCHIATRIC: Negative for: Weakness, Paralysis, Numbness, Tingling, Tremor, Anxiety, Depression, Memory loss SKIN: Negative for: Rash, Itching GENITOURINARY: Negative for: vaginal itching, vaginal discharge, hematuria or dysuria PHYSICAL EXAM: BP 98/60 Ht 5' 7 (1.70m) Wt 142 lb 12.8 oz (64.8kg) LMP 11/30/2022 BMI 22.36 kg/(m2). GENERAL: pleasant in no apparent distress DERMATOLOGY: Normal, without lesions, non-icteric, and non-hirsute NECK: Supple, full range of motion, no adenopathy, and thyroid normal CHEST: Normal inspiratory effort ABDOMEN: soft, non-tender, no masses, and gravid NEURO: alert and oriented x3,exam grossly non-focal PELVIS: Deferred ASSESSMENT: 17 year old No obstetric history on file. at 31w4d wks gestational age PLAN: 1) Patient oriented to practice. Patient given new OB orientation folder. Discussed nutrition, fol (more content not included)... [facility] 07-03-2023 Note HNO ID: [id number] Author: Domenica Mccallum RN Service: ? Author Type: Registered Nurse Type: Progress Notes Filed: 07/03/2023 4:38 PM Note Text: Received records from [facility]. Placed in binder for upcoming appointment on 07/09/23 with JC. Domenica Mccallum RN [facility] 06-14-2023 Evaluation + Plan note Associated Problem(s): care, antepartum Offered flu shot and Tdap today and she was undecided and will consider getting at her next visit [facility] 06-14-2023 Miscellaneous Notes Associated Problem(s): care, antepartum Offered flu shot and Tdap today and she was undecided and will consider getting at her next visit documented in this encounter [facility] 06-14-2023 History of Presen t illness Narrative Images from the original note were not included. Birgit Chan 06/14[birth year]23 17 y.o. Chief Complaint Patient presents with Routine Visit Routine OB Visit TRIPP @ 28w0d - (+) FM, denies VB/CTX/LOF Problem list and all histories reviewed. Any changes are updated, see episode and problem list. PE: Vitals: Vitals: 06/14/23 1529 BP: 108/71 Pulse: 101 Gen: NAD, A&Ox3 Fundal height: 28 cm FHR: 150 bpm ASSESSMENT/PLAN: care, antepartum Offered flu shot and Tdap today and she was undecided and will consider getting at her next visit Follow up in about 2 weeks (around 06/28/2023) for TRIPP. documented in this encounter [facility] 05-24-2023 History of Presen t illness Narrative Pt here for 25w OB visit. Good FM No LOF or bleeding. No contractions. Feels good GCT and Rhogam ordered History reviewed - see episode report No nausea or vomiting. PE: See vitals Pt A&OX3, NAD Normal affect Non labored breathing Abd - non tender documented in this encounter [facility] 03-28-2023 History of Presen t illness Narrative Anatomy ultrasound to be scheduled around 20 weeks. She is here for 16w6d OB visit. Denies cramping, leaking, and bleeding. Had an episode this morning of light headedness as she got in the shower, did not lose consciousness. Had not eaten anything or had anything to drink, discussed making sure she continues to eat small frequent meals and drink plenty of water. ASSESSESMENT: Diagnosis Plan 1. Rh negative state in antepartum period 2. screening for malformation using ultrasonics US OB 14+ weeks anatomy scan US OB transvaginal 3. 16 weeks gestation of PLAN: Patient Active Problem List Diagnosis Date Noted care, antepartum 02/28/2023 Priority: Medium Overview Note: 1.Datin09/06/2023, Date entered prior to episode creation 2.Blood type: A Neg 3. Aneuploidy screen: Panorama ordered 4.Carrier screen: Horizon ordered 5.Anatomy USN: 6.Flu shot: 7.Tdap: 8.PPBC: 9. COVID vaccine: Rh negative state in antepartum period 02/07/2023 Overview Note: Rhogam: The following protocols represent a collaboration with physician Clinton at 28 weeks Received Rhogam at less 12 weeks for bleeding, repeat at 28 weeks PHYSICAL EXAM: Visit Vitals BP 108/65 Pulse 102 I have reviewed her pertinent history, lab results, medications, and problem list. See episode for any changes. Well appearing, Alert & oriented Skin warm & dry Normal range of motion in all extremities. Abdomen soft nontender Normal resp effort Follow up in about 4 weeks (around 04/25/2023) for Anatomy US, TRIPP. This note was electronically signed by ALESHIA Mccullough CNM at 3:35 PM on 03/28/2023. documented in this encounter [facility] 03-28-2023 Instructions ALESHIA Mccullough CNM - 03/28/2023 3:00 PM EDT Information: Do's and Don'ts Even with all the melva and anticipation can bring, it is not uncommon for a [id number] to have some questions and concerns -- [...] a nutrition consultation for you with our white goods appliance tech. Do: Maintain a balanced diet According to [...] include meat, fish, eggs, almonds cottage cheese, Slovak yogurt, low fat cheese and low fat [...] talk with her health care provider or truss puller helper about restricting her intake of caffeine and artificial sweeteners. All alcohol should be avoided in . Do: Exercise during : Regular exercise during , with the approval of your physician or truss puller helper, can often help to minimize the daily [...] complications should consult with their physician or truss puller helper before beginning any exercise during . All women should be evaluated by their physician or truss puller helper before beginning or continuing an exercise program [...] the type of work performed and the [id number]'s medical condition. Taking proper precautions to avoid these risks on the job can help keep you and your baby healthy throughout the . The [place] [employer] recommends the following for working [...] woman sleep more comfortably on her side. Second Trimester What to expect The second trimester of stiles a turning point for mother and fetus. The mother usually begins to feel better and will start showing the more. The fetus has now developed all its organs and systems and will now focus on growing in size and weight. During the second trimester, the umbilical cord continues to thicken as it carries nourishment to the fetus. However, harmful substances also pass through the umbilical cord to the fetus, so care should be taken to avoid alcohol, tobacco and other known hazards. During the second trimester, both the mother's body and the fetus continue to grow. Baby Development Now that all the major organs and systems have formed in the fetus, the following six months will be spent growing. The weight of the fetus will multiply more than seven times over the next few months, as the fetus becomes a baby that can survive outside of the uterus. By the end of the second trimester , the fetus s development will be about 13 to 16 inches long and weighs about 2 to 3 pounds. development during the second trimester includes the following: The fetus kicks, moves, and can turn from side to side. The eyes have been gradually moving to the front of the face and the ears have moved from the neck to the sides of the head. The fetus can hear the mother's voice. A creamy white substance (called vernix caseosa, or simply vernix) begins to appear on the fetus and helps to protect the thin skin. Vernix is gradually absorbed by the skin, but some may be seen on babies even after . The fetus is developing reflexes such as swallowing and sucking. The fetus can respond to certain stimuli. The placenta is fully developed. The brain will undergo its most important period of growth from the 5th month on. Fingernails have grown on the tips of the fingers and toes, and the fingers and toes are fully . The fetus goes through cycles of sleep and wakefulness. Skin is wrinkly and red, covered with soft, downy hair (called lanugo). Hair is growing on the head of the fetus. Fat begins to form on the fetus. Eyelids are beginning to open and the eyebrows and eyelashes are visible. Fingerprints and toe prints have formed. Rapid growth is continuing in size and weight. The 20th week stiles the fpc point of the . Changes to a Mother s Body The second trimester of is the most physically enjoyable for most women. Morning sickness usually abates by this time and the extreme fatigue and breast tenderness usually subsides. These changes can be attributed to a decrease in levels of human chorionic gonadotropin (hCG) hormone and an adjustment to the levels of estrogen and progesterone hormones. The following is a list of changes and symptoms that may occur during the second trimester: Appetite may increase. The mother may be able to feel the movement of the fetus for the first time - a phenomenon called quickening - by 20 weeks. The uterus has grown to the height of the belly button, making the visible. The skin on the belly may itch as it grows and there may be pain down the sides of the body as the uterus stretches. The lower abdomen may ache as ligaments stretch to support the uterus. The need to frequently urinate may decrease as the uterus grows out of the pelvic cavity, relieving pressure on the bladder. A mother's nose may become congested and she may experience nosebleeds. This is due to the increase in hormones (estrogen and progesterone) that affect the mucous membranes in the nose. A woman's gums become spongier and may bleed easily. This is due to the increase in hormones (estrogen and progesterone) that affect the mucous membranes in the mouth. Varicose veins and hemorrhoids may appear. A woman may have a white-colored vaginal discharge called leukorrhea. (A colored or bloody discharge may signal possible complications and should be examined immediately.) The increasing weight gain may cause backaches. Skin pigmentation may change on the face or abdomen due to the hormones. Heart burn, indigestion and constipation may continue. Second trimester visits During the second and third trimester visits, your health care provider may check the following, depending on your current medical condition and the health of the fetus: Any current symptoms or discomforts Mother's weight Mother's blood pressure Urine test - to detect albumin (a protein) which may indicate preeclampsia or toxemia and sugar (which may indicate hyperglycemia) Growth, size, and development of the fetus Size of the uterus - after approximately 12 weeks of gestation, the uterus can be felt through the abdominal wall Height of the fundus (top of the uterus) heartbeat How to contact us: During office hours please call the office: [phone] After hours answering service phone number: [phone] Please call if you experience any of [...] service after hours. documented in this encounter [facility] 02-28-2023 History of Presen t illness Narrative HISTORY OF PRESENT ILLNESS: Presents today for initial OB appointment at 12w6d, Patient's last menstrual period was 11/30/2022 (exact date)., dating ultrasound completed and preliminary result reviewed with patient. Varicella or vaccinated for varicella as a child: yes. Cats: yes. If yes, litter box precautions given. Plans to breastfeed. 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 Pt desires Noninvasive Testing (NIPT): yes Pt desires sex with testing: yes Carrier Screening option reviewed: Pt desires Carrier Screening: yes Indications for Baby Aspirin High Risk Indication: [] History of Preeclampsia [] Multifetal gestation [] Chronic HTN [] Pregestational Type 1 or 2 Diabetes [] Renal Disease [] Autoimmune Disease (i.e., SLE, APLS) Two Moderate Risk Indication: [x] Nulliparity [] Obesity (BMI > 30) [] Family history of preeclampsia (ie, mother or sister) [] Race [] Low SES [] Age 35 years or older [] Personal history factors (eg, low weight or small for gestational age, previous adverse outcome, >10-year interval) [] In vitro fertilization ASA prescribed: No, Not Indicated Body mass index is 19.64 kg/m . If BMI is 30 or over, history of gestational diabetes, or insulin resistance then early GCT ordered. REVIEW OF SYSTEMS: Constitutional: No fever, chills or malaise; No weight change. Positive for fatigue and appetite changes. HENT: No vision changes, Headache, Dizziness, Congestion Respiratory: Negative for cough and chest tightness Cardiovascular: Negative for chest pain, palpitations, and leg swelling. Breast: No breast abnormalities or lumps Gastrointestinal: No Indigestion, Heartburn, Diarrhea, Constipation,or Bowel Changes; No Bloody Stools. Intermittent nausea. Genito-Urinary: No dysuria, hematuria or nocturia. No urinary incontinence or vaginal discharge, itching, and odor. Musculoskeletal: Negative for back pain Skin: Negative for pallor and rash Neurological: Negative for seizures and headaches Allergic/Immunologic: Negative for environmental and food allergies Psych: Negative for depression, homicidal thoughts, suicidal thoughts, anxiety, and confusion MEDICATIONS: Current Outpatient Medications Medication Sig Dispense Refill Vit-Fe Fumarate-FA ( VITAMIN PO) Take by mouth. No current facility-administered medications for this visit. ALLERGIES: Patient has no known allergies. OB History Para Term AB Living 1 0 0 0 0 0 SAB IAB Ectopic Multiple Live Births 0 0 0 0 0 # Outcome Date GA Lbr Fredy/2nd Weight Sex Delivery Anes PTL Lv 1 Current Past Medical History: Diagnosis Date Patient denies medical problems History reviewed. No pertinent surgical history. Family History Problem Relation Name Age of Onset Cancer Paternal Grandmother unsure what type-may be breast Social History Socioeconomic History Marital status: Single Spouse name: Not on file Number of children: Not on file Years of education: Not on file Highest education level: Not on file Occupational History Not on file Tobacco Use Smoking status: Never Smokeless tobacco: Never Substance and Sexual Activity Alcohol use: Not Currently Drug use: Never Sexual activity: Yes Partners: Male control/protection: None Other Topics Concern Not on file Social History Narrative Merged History Encounter Social Determinants of Health Financial Resource Strain: Not on file Food Insecurity: Not on file Transportation Needs: Not on file Physical Activity: Not on file Stress: Not on file Social Connections: Not on file Intimate Partner Violence: Not on file Housing Stability: Not on file PHYSICAL EXAM: Vital Signs: BP 110/73 Pulse 105 Wt 125 lb 6.4 oz (56.9 kg) BMI 19.64 kg/m Constitutional: Alert and oriented to person, place, and time. Normal appearance and dress, well developed, well nourished, cooperative, and appears to be in no acute distress. HENT: Head: Normocephalic Eyes: PERRLA, normal sclera, vision grossly intact, no eye discharge, normal eyelids Ear: No external ear drainage Nose: No nasal discharge Neck: Supple, normal range of motion, no thyromegaly, no tracheal deviation. Respiratory: Normal respiratory effort, no respiratory distress. Lungs clear to auscultation bilaterally both anterior and posterior. Cardiovascular: Heart with regular rate and rhythm. Abdomen: soft, non-tender, non-distended. No rigidity, no rebound tenderness, no guarding, no organomegaly. Lymph Nodes: no lymphadenopathy cervical, axillary, or inguinal. Neuro: no gross motor or sensory deficits, coordination normal, oriented to person place and time Musculoskeletal: Normal gait, normal muscular development, no edema, no clubbing, no cyanosis. Normal range of motion in all extremities. Extremities: No calf tenderness, DTR 2+, and No edema bilaterally Skin: Skin normal color, warm, dry, and intact, normal texture with no lesions, rashes, or eruptions. Psych: The patient was able to demonstrate good judgement and reason, without hallucinations, abnormal affect or abnormal behaviors during the examination. Patient is not suicidal. Thought content is normal. Normal mood and affect. External genitalia: deferred ASSESSMENT: Patient Active Problem List Diagnosis Date Noted care, antepartum 02/28/2023 Priority: Medium Overview Note: 1.Datin09/06/2023, Date entered prior to episode creation 2.Blood type: A Neg 3. Aneuploidy screen: Panorama ordered 4.Carrier screen: Horizon ordered 5.Anatomy USN: 6.Flu shot: 7.Tdap: 8.PPBC: 9. COVID vaccine: Rh negative state in antepartum period 02/07/2023 Overview Note: Rhogam: The following protocols represent a collaboration with physician Clinton at 28 weeks Received Rhogam at less 12 weeks for bleeding, repeat at 28 weeks DIAGNOSIS: Birgit was seen today for initial visit. Diagnoses and all orders for this visit: care, antepartum (Primary) - Cancel: Antibody screen; Future - Cancel: ABO Group; Future - Rh Type; Future - CBC; Future - Chlamydia/Gonorrhea - Hepatitis B surface antigen; Future - Hepatitis C antibody; Future - HIV-1 and HIV-2 Antigen-Antibody Screen; Future - RPR; Future - Rubella antibody, IgG; Future - Urine culture - Antibody screen - ABO Group - Rh Type - CBC - Hepatitis B surface antigen - Hepatitis C antibody - HIV-1 and HIV-2 Antigen-Antibody Screen - RPR - Rubella antibody, IgG Screening for genetic disease carrier status - Horizon 14 (Campbell-Ethnic Standard); Future - Horizon 14 (Campbell-Ethnic Standard) Genetic screening - Panorama Test Plus 22q11.2 Deletion; Future - Panorama Test Plus 22q11.2 Deletion PLAN: New OB labs and cultures ordered. Lab Locations reviewed. [facility] Maternity Services guide given. New OB education given on AVS including: Medication list, food safety information, and OB Calendar. All questions were answered. Follow up in about 4 weeks (around 03/28/2023) for ROB. Marizol MILNER A exhibit preparator was offered to be present during her exam. The patient: declined documented in this encounter [facility] 02-28-2023 Instructions ALESHIA Mccullough CNM - 02/28/2023 11:45 AM EDT [facility] Midwifery Service Before you bring your baby into the world, a lot of decisions have to be made. One of those decisions is whether or not to use a Certified Nurse Coal Trammer (CNM). Certified Nurse Midwives are registered nurses who have received a master s degree and advanced training in women s health and midwifery. They passed a national certification examination and are licensed in the state [facility]. Certified Nurse Midwives write prescriptions and provide [...] option if you have a Certified Nurse Coal Trammer. You will work with your CNM to determine the best delivery options for you. However, if medical intervention is needed, your truss puller helper will take the steps necessary to ensure a healthy outcome for you and your baby. Certified Nurse Midwives are always library sales consultant with a physician in case intervention is needed, for instance a Section, vacuum or forceps assisted . Our physician would perform those procedures and the CNM remains present with you for support. The laboring woman receives the best possible care with this team based approach. The CNM section rate at [facility] [place] [facility] is only 8-9%, which means most mothers have a normal vaginal . [facility] offers the largest midwifery team in the region. This team is available any time, day or night for your delivery. The truss puller helper that is library sales consultant the day you labor will be the one who attends the . Throughout your you have the option to meet the various midwives or simply go to the office that is most convenient for you. Not all midwives see clients in every office. Marizol Azevedo, MANAGER CLIENT SERVICE-CNM Silvia Bejarano, MANAGER CLIENT SERVICE-CNM Nasreen Aggarwal, MANAGER CLIENT SERVICE-CNM Radha Bond, MANAGER CLIENT SERVICE-CNM Sobeida العراقي, MANAGER CLIENT SERVICE-CNM Michell Gan, MANAGER CLIENT SERVICE-CNM Sravanthi Flores, MANAGER CLIENT SERVICE-CNM * Monica Camarillo, MANAGER CLIENT SERVICE-CNM Sneha Ramirez, MANAGER CLIENT SERVICE-CNM Vicenta Krishnan, MANAGER CLIENT SERVICE-CNM * Wanda Medina, MANAGER CLIENT SERVICE-CNM * *Office-based only midwives, do not attend births Currently, 28/01 midwifery coverage while in labor is only available at [facility]. [facility] midwives see patients in offices throughout our region including: [place], [facility], [place]ay Barrett, [place], [place], [place]ie[place] Stack and [place]. To learn more about [facility] services, call . Food Safety in The following tips will help keep your food safe from harmful bacteria. For more information, visit foodsafety.gov. Keep things clean Wash your hands well before and after handling food. Always wash your hands after using the bathroom, changing diapers or handling pets. Wash fruits and vegetables under running water before eating. Wash utensils, dishes, cutting boards, counters and sinks with hot, soapy water after they come in contact with raw meat, poultry, seafood, [...] as feta, Brie, Camembert, blue-veined cheeses and [place]-style cheeses. Limit deli foods like prepared salads [...] of farm-raised or wild salmon from the [place] or [place], not from the [place]. Avoid raw [...] expect at your future OB visits with [facility] Medical [facility] 6 -13 Weeks - Dating and Viability Ultrasound/ Initial OB intake and physical with a Certified Nurse Coal Trammer or Women s Health Nurse Practitioner. Obtain [...] to risk factors. Discuss Physician and Nurse Coal Trammer options Discuss [facility] as site for delivery 10 - 14 [...] and check uterine size Discuss plans, choosing adult basic education instructor, taking childbirth classes Discuss TDaP vaccine to [...] contact us: Have you signed up for [email or web address] ? It is the best way to communicate with us for your non-urgent needs. You will need an activation code. If you need a code please ask us or any of our lockstitch front maker staff or call and we can provide to your email! You can also sign up for [email or web address] on the [email or web address] website. Our goal is to answer your messages within 2-3 business days. During office hours please call the office: [phone] After hours answering service phone number: [phone] Please call if you experience any of [...] service after hours. documented in this encounter [facility] [employer] 02-04-2023 History of Presen t illness Narrative Birgit Chan 02/04/2025 17 y.o. 02/04/2023 This patient [...] Group Antibody screen hCG, quantitative Rh Type Birgit was seen today for amenorrhea. Diagnoses and [...] that she can find the results on CarePaymentt and that I will follow up with a atokore message Dating and viability US ordered NOB [...] pertinent to this visit. and Amenorrhea (LMP 5.26.23 TANYA 3.1.24 = 9.3wks) . Previous labs and other diagnostics were reviewed if available Previous office notes were also reviewed if available. documented in this encounter [facility] 02-04-2023 Instructions Mack Garcia CNM - 02/04/2023 1:30 PM EDT Obstetrical Calendar Weeks Gestation: Discussion and Testing 4-8 weeks - Visit with provider to establish hcg blood levels and order ultrasound. 6-13 Weeks - Dating and Viability Ultrasound and Visit with provider to discuss US results. 10-13 weeks - Initial OB intake and physical with a Coal Trammer or Nurse Practitioner. Obtain complete medical, genetic [...] to risk factors. Discuss Physician and Nurse Coal Trammer options Discuss hospital for delivery 10-14 Weeks [...] test if done Discuss plans, preregistration, choosing adult basic education instructor, taking childbirth classes 30 - 36 weeks [...] What is genetic testing? genetic testing gives jcncrcl-ni-sl information about whether their fetus has certain [...] commonly affects people of Eastern and Central Confucianism, Cajun, and [place] descent, but it can occur in anyone. [...] of life. Copyright January 2017 by the [employer] ========= Panorama [...] be tested again for that disorder. When devulcanizer charger screening be done? Some people decide to [...] are negative.. Copyright October 2016 by the [place] ======== Low Risk Medications This is a listing of low risk, over the counter medication that you may take during your for the following symptoms: Cough, Cold, Congestion Benadryl Sudafed: brand name or generic (pseudoephedrine), buy the one you have to get behind the pharmacy counter and show your delivery driver assistant's license to purchase WARNING! Do NOT take Sudafed if you have high blood pressure Robitussin Mucinex Any throat or cough drops, or sprays Chlor-Trimeton Vicks Nasal Sprays Karnes Nasal Vacherie (saline nose spray) Allergy Medication Zyrtec, Claritin Pain Reliever and Fever Commissioned Fire Officer Tylenol, Extra Strength Tylenol, Acetaminophen, Panadol, Tempra, [...] illness, thyroid disease, or gallbladder disease. Your printed circuit board preassembler may suspect that you have one of [...] B6 and doxylamine--Vitamin B6 is a safe, ghum-uih-athnvsl treatment that may be tried first. Doxylamine, a medication found in lnrr-feo-mjuzrad sleep aids, may be added if vitamin [...] or limited safety information. You and your printed circuit board preassembler or other members of your health care [...] healthcare provider. Copyright June 2015 by the [place] Information: Do's and Don'ts Even with all the melva and anticipation can bring, it is not uncommon for a bzjagc-tm-do to have some questions and concerns -- [...] a nutrition consultation for you with our white goods appliance tech. Do: Maintain a balanced diet According to [...] include meat, fish, eggs, almonds cottage cheese, Slovak yogurt, low fat cheese and low fat [...] talk with her health care provider or truss puller helper about restricting her intake of caffeine and artificial sweeteners. All alcohol should be avoided in . Do: Exercise during : Regular exercise during , with the approval of your physician or truss puller helper, can often help to minimize the daily [...] complications should consult with their physician or truss puller helper before beginning any exercise during . All women should be evaluated by their physician or truss puller helper before beginning or continuing an exercise program [...] the type of work performed and the vxvsch-eo-sa's medical condition. Taking proper precautions to avoid these risks on the job can help keep you and your baby healthy throughout the . The [place] [employer] recommends the following for working [...] During office hours please call the office: [phone] After hours answering service phone number: [phone] Please call if you experience any of [...] or the answering service after hours. ========= [facility]wifery [facility] Before you bring your baby into the world, a lot of decisions have to be made. One of those decisions is whether or not to use a Certified Nurse Coal Trammer (CNM). Certified Nurse Midwives are registered nurses who have received a master s degree and advanced training in women s health and midwifery. They passed a national certification examination and are licensed in the [facility]. Certified Nurse Midwives write prescriptions and [...] option if you have a Certified Nurse Coal Trammer. You will work with your CNM to determine the best delivery options for you. However, if medical intervention is needed, your truss puller helper will take the steps necessary to ensure a healthy outcome for you and your baby. Certified Nurse Midwives are always library sales consultant with a physician in case intervention is needed, for instance a Section, vacuum or forceps assisted . Our physician would perform those procedures and the CNM remains present with you for support. The laboring woman receives the best possible care with this team based approach. The CNM section rate at [facility] is only 8-9%, which means most mothers have a normal vaginal . [facility] offers the largest midwifery team in the region. This team is available any time, day or night for your delivery. The truss puller helper that is library sales consultant the day you labor will be the one who attends the . Throughout your you have the option to meet the various midwives or simply go to the office that is most convenient for you. Not all midwives see clients in every office. Marizol Azevedo, MANAGER CLIENT SERVICE-CNM Silvia Bejarano, MANAGER CLIENT SERVICE-CNM Nasreen Aggarwal, MANAGER CLIENT SERVICE-CNM Monica Rabia, MANAGER CLIENT SERVICE-CNM Radha Bond, MANAGER CLIENT SERVICE-CNM Sobeida العراقي MANAGER CLIENT SERVICE-CNM Michell Gan, MANAGER CLIENT SERVICE-CNM Sravanthijake Flores, MANAGER CLIENT SERVICE-CNM * Zofia Henderson, MANAGER CLIENT SERVICE-CNM Sneha Ramirez, MANAGER CLIENT SERVICE-CNM Mack Garcia MANAGER CLIENT SERVICE-CNM Vicenta Krishnan, MANAGER CLIENT SERVICE-CNM * Wanda Sedlak, MANAGER CLIENT SERVICE-CNM * *Office-based only midwives, do not attend births Currently, 28/01 midwifery coverage while in labor is only available at [facility]. Do you want more information about midwives? Discover more information for you and your family at the [place] (ACNM) web site at www.Vidmakeruth.AdChina. Check out the video about Midwives and the Care They Provide at http://bit.ly/MidwivesCare-video uest Lab Locations (Previously [facility]): SITE ADDRESS DIRECTIONS TELEPHONE/FAX Hours of Operation [facility] Professional [place] [address] [place] [address] [place] Phone Saturday-Saturday 7:00am-5:00pm 8:00am-12:00pm (Noon) [facility] [address] [place], [place] [address] Professional Building next to [facility] Phone Saturday-Saturday Closed for Lunch 7:30am-4:30pm 12:30pm-1:30pm [facility]: [address] [address] [facility] Phone Saturday-Saturday 7:30am-4:30pm [facility]: [address] [place] [address] Phone Saturday-Saturday Closed for Lunch 7:30am-4:00pm 12:30pm-1:00pm [place]: [address] [place], [place] [address] [facility] Phone //Saturday Closed for Lunch 8:00am-5:00pm 12:00pm-1:00pm [facility] [address] [place], [place] [address] [address] Just west of [facility] Phone Saturday- Closed for Lunch Saturday 8:00am-4:30pm 12:30pm-1:00pm 8:00am-12:00pm (Noon) [place]: [place] [address] [place], [place] [address] the [facility] [address] exit Phone Saturday-Saturday Closed for Lunch 8:00am-5:00pm 12:00pm-1:00pm [place]: [facility] [address] [place], [place] [address] [address] Phone Saturday-Saturday 7:30am-4:30pm [place] [address] [place] [address] Parking lot is off of [address]. Phone M, T, TH, F Closed for Lunch Saturday 7:30am-4:30pm 12:00pm-1:00pm 7:30am-11:30am [place] [place], [place] [address] In [facility] Phone y6 Saturday-Saturday 7:30am-3:00pm [facility] [address] [place] [address] [address] [place] [address] Phone Saturday-Saturday 7:30am-4:30pm 8:00am-12:00pm (Noon) [facility] [address] [place], [place] [address] [place] [address] from [facility] Phone Saturday-Saturday 7:30am-4:30pm 8:00am-12:00pm (Noon) [place] [address] [place], [place] [address] [address] from [place] Phone Saturday-Saturday Closed for Lunch 7:30am-4:30pm 12:00pm-1:00pm [facility] [address] [place] [address] Phone Saturday-Saturday 7:30am-4:30pm 8:00am-12:00pm (Noon) [place] [address] [place], [place] [address] Just north of [facility] Phone Saturday-Saturday Closed for Lunch 7:30am-4:30pm 12:00pm-1:00pm [facility] [address] [place] [address] Phone Saturday-Saturday 7:30am-5:00pm [facility] Professional Building [address] [place] [address] Across shared parking lot from [employer] Phone Saturday-Saturday 7:30am-4:30pm 8:00am-12:00pm (Noon) [facility] [address] [facility] [address] [place] [address] Across from [employer] Phone [phone] Saturday-Saturday 7:30am-5:00pm [place]: [place] [address] Just north of the [place] Phone Saturday-Saturday 7:30am-5:00pm documented in this encounter [facility] documented in this encounter [facility] note* Diagnosis Amenorrhea- Primary Absence of menstruation documented in this encounter [facility] note* Diagnosis Initial obstetric visit in first trimester- Primary care, antepartum Screening for genetic disease carrier status Genetic screening Other genetic screening 12 weeks gestation of documented in this encounter [facility] note* Diagnosis Rh negative state in antepartum period- Primary screening for malformation using ultrasonics Encounter for routine screening for malformation using ultrasonics 16 weeks gestation of documented in this encounter [facility] note* Diagnosis Encounter for supervision of normal first in second trimester- Primary Rh negative state in antepartum period documented in this encounter [facility] note* Diagnosis Rh negative state in antepartum period- Primary [facility] Diagnosis Rh negative state in antepartum period- Primary documented in this encounter [facility] note* Diagnosis care, antepartum- Primary documented in this encounter [facility] note* Diagnosis Encounter for supervision of normal first , first trimester- Primary documented in this encounter [facility] note* Diagnosis with care elsewhere in third trimester- Primary 35 weeks gestation of state, incidental [facility]* Diagnosis 37 weeks gestation of - Primary state, incidental with care elsewhere in third trimester [facility] Diagnosis with care elsewhere in third trimester- Primary 38 weeks gestation of state, incidental [facility] this [facility]* Diagnosis with care elsewhere in third trimester- Primary 39 weeks gestation of state, incidental [facility]* Diagnosis Encounter for supervision of normal first in third trimester- Primary Supervision of normal first 40 weeks gestation of state, incidental documented in this encounter [facility] Summary Purpose Family History No Family History Records FoundNo Family History Records FoundNo Family History Records FoundNo Family History Records Found Advance Directives No Advanced Directives Records FoundNo Advanced Directives Records FoundNo Advanced Directives Records FoundNo Advanced Directives Records Found Discharge Instructions * Attachments The following attachments cannot be sent through Care Everywhere. * Abscess: Skin: Pediatric (Maori) documented in this encounter* Instructions* Mp Garnett, MANAGER CLIENT SERVICE - RESTAURANT BUSSER - 04/05/2019 Drink plenty of fluids. Tylenol and motrin as needed for pain. Follow with your physician in the next several days. Return here or [place] [facility] for new or worsening symptoms. * Attachments The following attachments cannot be sent through Care Everywhere. * Bronchitis: Pediatric (Maori) documented in this encounter* Instructions* Ruddy Holloway, ALESHIA - WAREHOUSE DISTRIBUTION MANAGER - 04/30/2019 You can take Mucinex for the cough I prescribed Tessalon perles for the cough as needed and ibuprofen to take for pain Call Family practice for a follow up appointment next week * Attachments The following attachments cannot be sent through Care Everywhere. * Cough: Teen (Maori) documented in this encounter Assessments Diagnosis Abscess of breast- Primary Inflammatory disease of breast Diagnosis Bronchitis- Primary Bronchitis, not specified as acute or chronic Diagnosis Cough- Primary Additional Source Comments INFORMATION SOURCE (unrecogn ized section and content) DATE CREATED AUTHOR AUTHOR'S ORGANIZ ATION 05/28/2019 [facility] [place] [facility] [employer] DATE CREATED AUTHOR AUTHOR'S ORGANIZ ATION [facility] DATE CREATED AUTHOR AUTHOR'S ORGANIZ ATION 08/25/2023 [facility] [place] [facility] Reason for Visit (unrecogniz ed section and content) Reason Comments Chest Congestion Started a week and a half ago with non-productive cough. Pt feels like her chest is tight and fels lightheaded. Pt is concerned she ehas mono Reason Comments Cough Reason Comments Amenorrhea LMP 5.26.23 TANYA 3.1. 24 = 9.3wks Reason Comments Initial Visit Reason Comments Routine Visit Declined greige mender e Reason Comments Routine Visit Reason Onset Date Comments Care 08/08/2023 Reason Comments Union Contract Representative - Other PRAF Reason Onset Date Comments Care 08/16/2023 Reason Onset Date Comments Population Health Navigation Outreach 08/23/2023 Ob/peds Reason Onset Date Comments Care 08/23/2023 Reason Onset Date Comments Care 08/30/2023 Reason Onset Date Comments Care 09/06/2023 Care Teams (unrecognized sec tion and content) Software Release Engineer Relationship Specialty Start Date End Date [facility] [address] [place] [address] PCP - General 01/31/23 Software Release Engineer Relationship Specialty Start Date End Date [facility] Physicians [address] [address] [place] [address] PCP - General 01/31/23 Software Release Engineer Relationship Specialty Start Date End Date [facility] [address] [place] [address] PCP - General 01/31/23 Software Release Engineer Relationship Specialty Start Date End Date [facility] [address] [facility] [address] [place] [address] PCP - General 01/31/23 Software Release Engineer Relationship Specialty Start Date End Date [facility] [address] [facility] [address] [place] [address] PCP - General 01/31/23 Software Release Engineer Relationship Specialty Start Date End Date [facility] [address] [place] [address] PCP - General 01/31/23 Software Release Engineer Relationship Specialty Start Date End Date [facility] [address] [place] [address] PCP - General 01/31/23 Software Release Engineer Relationship Specialty Start Date End Date [facility] [address] [place] [address] PCP - General 01/31/23 Source Comments (unrecognize d section and content) In the event this informatio n is protected by the Federal Confidentiality of Alcohol and Drug Abuse Patient Records regulations: The Federal rules restrict any use of the information to criminally investigate or prosecute any alcohol or drug abuse patient.[facility] the event this information is protected by the Federal Confidentiality of Alcohol and Drug Abuse Patient Records regulations: The Federal rules restrict any use of the information to criminally investigate or prosecute any alcohol or drug abuse patient.[facility] the event this information is protected by the Federal Confidentiality of Alcohol and Drug Abuse Patient Records regulations: The Federal rules restrict any use of the information to criminally investigate or prosecute any alcohol or drug abuse patient.[facility] Hospital[facility] the event this information is protected by the Federal Confidentiality of Alcohol and Drug Abuse Patient Records regulations: The Federal rules restrict any use of the information to criminally investigate or prosecute any alcohol or drug abuse patient.[facility] Hospital[facility] the event this information is protected by the Federal Confidentiality of Alcohol and Drug Abuse Patient Records regulations: The Federal rules restrict any use of the information to criminally investigate or prosecute any alcohol or drug abuse patient.[facility] Hospital[facility] the event this information is protected by the Federal Confidentiality of Alcohol and Drug Abuse Patient Records regulations: The Federal rules restrict any use of the information to criminally investigate or prosecute any alcohol or drug abuse patient.[facility] HospitalIn the event this information is protected by the Federal Confidentiality of Alcohol and Drug Abuse Patient Records regulations: The Federal rules restrict any use of the information to criminally investigate or prosecute any alcohol or drug abuse patient.[facility] FOR RECORDS PERTAINING TO PATIENTS WHO [...] BE BASED ON THE PRIMARY CLINICAL RECORDS. [facility] [employer] [facility]. provides no warranty or guarantee of the accuracy or completeness of information in this document.
[2023-09-07] MEDS: Lactated Ringers 1,000 ML 50 ML IV (04:00)
[2023-09-07 04:15] LABS: Absolute Lymphocyte Count 3.07 X10^3/uL (0.83-4.51); Absolute Neutrophil Count 12.2 X10^3/uL (2.0-7.7); Basophil# 0.04 X10^3/uL; Basophil% 0.2 % (0-1); Eosinophil# 0.03 X10^3/uL; Eosinophils% 0.2 % (0-5); Hematocrit 37.9 % (37-47); Hemoglobin 12.7 g/dL (12.0-15.0); Lymphocyte # 3.07 X10^3/ul (0.83-4.51); Lymphocyte % 18.6 % (19-41); Mean Corp Hgb Conc 33.5 g/dL (32-36); Mean Corpuscular Volume 89.4 fL (81-99); Mean Platelet Vol. 10.5 fl (6.2-12.0); Monocyte# 1.12 X10^3/uL; Monocyte% 6.8 % (0-10); NRBC Flagged by Analyzer 0 % (0-5); Neutrophil # 12.15 X10^3/uL (2.7-7.7); Neutrophil % 73.7 % (47-70); Platelet Count 208 K/mm3 (150-450); RBC Distribution Width CV 13.1 % (11.6-14.6); RBC Distribution Width SD 42.6 fl (35.1-43.9); Red Blood Count 4.24 M/mm3 (4.2-5.4); White Blood Count 16.5 K/mm3 (4.4-11.0)
[2023-09-07 05:15] LABS: Syphilis Antibodies Non-reactive
[2023-09-07] MEDS: LACTATED RINGERS 500 ML 999 ML IV ×2 (06:25→08:38)
[2023-09-07] MEDS: fentaNYL-bupivacaine (epidural) 100 ML BAG EPIDURAL ×2 (07:48→11:51)
--- NOTE | 2023-09-07 08:56 | PCM.HP.OB ---
HPI - General General Date of Admission: 09/07/23 Date of Service: 09/07/23 Chief Complaint: Rupture of membranes at term HPI Narrative BIRGIT MAYS, is a 17 F who presents loss of fluid around 1 am. Clear. Contractions spontaneous. No complications in . No medications. Desires epidural Maternal Data Information Final TANYA: 09/06/23 Gestational age: 40/1 PFSH PFSH Medical History no medical history Home Medications [id number] 1 mg tablet 1 tab PO DAILY 09/07/23 [History Last Taken 09/06/23 08:00] Allergy/AdvReac Type Severity Reaction Status Date / Time No Known Allergies Allergy Verified 09/07/23 03:29 Surgical History no surgical history Social History Smoking Status: Never smoker History 1 Elective abortions Hx Para 0 Spontaneous abortions Hx # Term Pregnancies Ectopic pregnancies Hx # Pregnancies Multiple births # of living children NST FHR Rate Baby A Variability:: Minimal Accelerations:: 15 x 15 Decelerations:: Variable ROS Constitutional Constitutional: Denies fatigue, fever(s) or malaise Eyes Eyes: Denies change in vision ENT HEENT: Denies dizziness or headache(s) Cardiovascular Cardiovascular: Denies chest pain, dyspnea or lightheadedness Respiratory/Chest Respiratory/Chest: Denies cough or dyspnea Gastrointestinal Gastrointestinal: Denies change in bowel habits Genitourinary Genitourinary: Denies burning urination or genital lesions Integumentary Integumentary: Denies rash Neurologic Neurologic: Denies confusion, dizziness, headache(s), numbness or weakness Vital Signs Vital Signs Vital Signs: 09/07/23 03:24 09/07/23 03:24 09/07/23 03:27 Temperature Temperature Source Pulse Rate 90 93 Blood Pressure 126/64 H BP Systolic 126 BP Diastolic 64 Pulse Ox 09/07/23 03:27 09/07/23 03:30 09/07/23 03:30 Temperature 98.8 F Temperature Source Temporal Pulse Rate Blood Pressure BP Systolic BP Diastolic Pulse Ox 98 09/07/23 04:58 09/07/23 04:58 09/07/23 04:59 Temperature Temperature Source Pulse Rate 99 89 Blood Pressure 131/80 H BP Systolic 131 BP Diastolic 80 Pulse Ox 09/07/23 04:59 03/02/24 05:03 09/07/23 05:03 Temperature 98.8 F Temperature Source Oral Pulse Rate Blood Pressure BP Systolic BP Diastolic Pulse Ox 96 09/07/23 05:30 09/07/23 05:30 09/07/23 06:31 Temperature Temperature Source Pulse Rate 98 Blood Pressure 119/72 BP Systolic 119 BP Diastolic 72 Pulse Ox 100 09/07/23 06:31 09/07/23 06:33 09/07/23 06:33 Temperature Temperature Source Pulse Rate 79 93 Blood Pressure BP Systolic BP Diastolic Pulse Ox 94 09/07/23 07:35 09/07/23 07:35 09/07/23 07:37 Temperature Temperature Source Pulse Rate 99 106 H Blood Pressure BP Systolic BP Diastolic Pulse Ox 100 09/07/23 07:37 09/07/23 07:39 09/07/23 07:39 Temperature Temperature Source Pulse Rate 104 H Blood Pressure BP Systolic BP Diastolic Pulse Ox 94 100 09/07/23 07:42 09/07/23 07:42 09/07/23 07:44 Temperature Temperature Source Pulse Rate 94 108 H Blood Pressure 123/70 H BP Systolic 123 BP Diastolic 70 Pulse Ox 09/07/23 07:44 09/07/23 07:46 09/07/23 07:46 Temperature Temperature Source Pulse Rate 112 H Blood Pressure 154/66 H BP Systolic 154 BP Diastolic 66 Pulse Ox 100 09/07/23 07:49 09/07/23 07:49 09/07/23 07:51 Temperature Temperature Source Pulse Rate 111 H Blood Pressure 123/76 H BP Systolic 123 BP Diastolic 76 Pulse Ox 100 09/07/23 07:51 09/07/23 07:54 09/07/23 07:54 Temperature Temperature Source Pulse Rate 111 H 108 H Blood Pressure BP Systolic BP Diastolic Pulse Ox 98 09/07/23 07:56 09/07/23 07:56 09/07/23 08:00 Temperature Temperature Source Pulse Rate 123 H Blood Pressure 132/61 H 135/63 H BP Systolic 132 135 BP Diastolic 61 63 Pulse Ox 09/07/23 08:00 Temperature Temperature Source Pulse Rate 121 H Blood Pressure BP Systolic BP Diastolic Pulse Ox Weight Weight: 71.305 kg Body Mass Index (BMI) 24.6 Physical Exam Const alert and oriented x3 General Appearance: cooperative and comfortable HEENT normocephalic Head and Scalp: atraumatic Resp normal respiratory effort Cardio regular rate Psych mental status grossly normal Labs Labs Labs: Blood Type A NEGATIVE Antibody Screen NEGATIVE Hct 37.9 % (37-47) Hgb 12.7 g/dL (12.0-15.0) Syphilis Total Ab Non-reactive Assessment & Plan (1) PROM with onset of labor within 24 hours of rupture: PLAN: Pitocin augmentation prn, desires epidural (2) 40 weeks gestation of :
[2023-09-07] MEDS: Lactated Ringers 1,000 ML 200 ML IV (10:55)
[2023-09-07] MEDS: Oxytocin 10 UNITS/ML Vial IM (14:26)
[2023-09-07] MEDS: Oxytocin 15 Units/NS 250ml 15 UNITS/250 ML IV.SOLN 83 UNITS IV (14:28)
--- NOTE | 2023-09-07 14:42 | EX.PCM.OBRPT ---
Assessment & Plan (1) 40 weeks gestation of : (2) PROM with onset of labor within 24 hours of rupture: QUALIFIERS: PROM gestational age: full term Qualified Code(s): O42.02 - Full-term premature rupture of membranes, onset of labor within 24 hours of rupture (3) (spontaneous vaginal delivery): Maternal Data Information Final ATNYA: 09/06/23 Gestational age: 40/1 Vaginal Delivery Maternal Presentation Maternal Presentation: Spontaneous Rupture of Membranes Operative Information Date of Procedure: 09/07/23 Pre-Operative Diagnosis: PROM Post-Operative Diagnosis: same Surgery / Procedure Performed: Spontaneous Vaginal Delivery Type of Anesthesia: Epidural Drain: Luo to straight drain Estimated Blood Loss: 150 cc Time of Delivery: 14:24 Findings Description of Procedure: Push for approximately 1 hour over an intact perineum. Head delivered CARLTON with CAN x 1 loose. Easily reduced. Anterior and posterior cervix delivered spontaneously. Cord clamped and cut. Cord blood collected. Placenta delivered spontaneously. No lacerations. Presentation: Vertex and CARLTON Amniotic Membrane Rupture Type: Spontaneous Time of Membrane Rupture: 0100 Amniotic Fluid Description: Clear Placental Delivery Description: Spontaneous Placenta Disposition: [facility] Cord Vessel Description: 3 Vessels Cord Entanglement: Around neck x 1, loose Nuchal Cord Compression: Without compression A Gender: Male (1 minute): 8 (5 minute): 9 Delayed Cord Clamping: Yes Post Vaginal Delivery Medications Given After Delivery: IV Pitocin and IM Pitocin Episiotomy Description: None Laceration: None Complication Complications: None
[2023-09-07] MEDS: 0.9% Saline Lock 10 ML Syringe IV (16:07)
--- NOTE | 2023-09-07 19:34 | NUR.TO.PHY ---
LR 1,000ml running at 200ml/hr infused at 1424, charted by this RN per Hanna RN at this time.
[2023-09-07] MEDS: Acetaminophen 500 MG Tablet 1000 MG PO (20:20)
[2023-09-08 00:40] VITALS: BP 110/73; PULSE 86; RESP 16; TEMP 36.2; O2SAT 97
[2023-09-08 03:30] VITALS: BP 108/68; PULSE 100; RESP 16; TEMP 36.4; O2SAT 97
[2023-09-08] MEDS: Ibuprofen 600 MG Tablet PO (08:18)
[2023-09-08] MEDS: Senna/Docusate Sodium 1 Tablet PO (08:19)
[2023-09-08 08:41] VITALS: BP 117/75; PULSE 100; RESP 18; TEMP 36.4; O2SAT 98
--- NOTE | 2023-09-08 09:53 | PCM.PN.OB ---
Subjective Subjective Feels good. Pain minimal. Breast feeding. Mild lochia. Objective Data Objective Data Vital Signs: Vital Signs Temp Pulse Resp BP Pulse Ox O2 Del Method 97.5 F L 100 18 117/75 98 Room Air 09/08/23 08:41 09/08/23 08:41 09/08/23 08:41 09/08/23 08:41 09/08/23 08:41 09/08/23 08:41 Oxygen Delivery Method Room Air Weight: 71.305 kg Body Mass Index (BMI) 24.6 Intake & Output: Intake and Output for Last 24 Hours 09/06/23 09/07/23 09/08/23 23:59 23:59 23:59 Intake Total 2864.17 / 2864.17 Output Total 1750 / 1750 700 / 700 Balance 1114.17 / 1114.17 -700 / -700 Lab / Micro Data Attestation: I reviewed the patient's lab results. 09/07/23 04:00 Labs: Laboratory Results - last 24 hr 09/07/23 04:00: Antibody Screen NEGATIVE Physical Exam Const alert and no apparent distress Narrative: Fundus firm, below umbilicus. Assessment & Plan (1) (spontaneous vaginal delivery): PLAN: Routine post care
[2023-09-08 13:02] VITALS: BP 105/58; PULSE 94; RESP 18; TEMP 36.4; O2SAT 98
--- NOTE | 2023-09-08 17:27 | PCM.DC.SUM ---
Providers Date of Admission: 09/07/23 Date of Discharge: 09/08/23 Primary Care Physician: Hodan Primary Care Phys Reason For Visit: VAGINAL DELIVERY Diagnosis Discharge Diagnosis (1) (spontaneous vaginal delivery): Status: Acute Code(s): O80 - Encounter for full-term uncomplicated delivery Plan: Routine post care Medications at Discharge Home Medications [id number] 1 mg tablet 1 tab PO DAILY 09/07/23 Hospital Course Operations None Procedures None Summary of Care Provided Minutes Spent on Discharge: 21 Hospital Course: Presented with ROM. Labored without augmentation for 12 hours. Pushed for approximately 1 hour delivering vaginally without complication. Breast feeding on discharge Weight / BMI Weight Weight: 71.305 kg Body Mass Index (BMI) 24.6 ABG / Lab / Microbiology Data 09/07/23 04:00 Laboratory: Laboratory Results - last 24 hr 09/07/23 04:00: Antibody Screen NEGATIVE D/C Instructions May resume sexual activity in: 6 weeks Please Follow Up With: Celeste Pineda MD When: Follow up with our office in 1-2 and 6 weeks or as needed. [phone] Meaningful Use Info Meaningful Use Diagnoses (Choose all that apply): None applicable Discharge Plan Admission Admit Date/Time: 09/07/23 03:54 Primary Reason for Your Visit: labor Attending Provider: Domenica Frye Primary Care Provider: Care Physician,No Primary Instructions Patient Instructions: After a Vaginal Discharge Orders/Prescriptions Prescriptions: No Action [id number]-eac-[id number] 1 mg tablet 1 tab PO DAILY Referrals / Follow Up: Care Physician,No Primary [Primary Care Provider] - Disposition Disposition (needs filled in before D/C Order can be placed): Home, Self Care
== END 2023-09-08 16:55 | disposition home or self-care (01) | DRG 560 ==
LOC: WPOUT 03:54 → WP 03:54
PROVIDERS: Admitting Provider Obstetrics & Gynecology; Visit Provider Obstetrics & Gynecology
DX: O42.02 Full-term premature rupture of membranes, onset of labor within 24 hours of rupture (principal); Z37.0 Single live birth; O69.81X0 Labor and delivery complicated by cord around neck, without compression, not applicable or unspecified; Z3A.40 40 weeks gestation of pregnancy
CPT/HCPCS: 59025; 59050; 84112; 85025; 86780; 86850; 86870; 86900; 86901; 99221; J7120; A4216; G0378